=== PATIENT | female | born 1955 | race Caucasian/White ===

== ENCOUNTER 2020-05-20 10:35 | Outpatient (REF) | payer MEDICARE, OTHER, SELFPAY ==
[2020-05-20 13:22] LABS: Alanine Aminotransferase 28 U/L (0-31); Albumin Level 4.5 g/dL (3.5-5.0); Alkaline Phosphatase 63 U/L (39-117); Anion Gap 15 (12-20); Aspartate Amino Transferase 30 U/L (5-31); Bilirubin Total 1.3 mg/dL (0.0-1.0); Blood Urea Nitrogen 11 mg/dL (9-16); Calcium 9.1 mg/dL (8.4-10.2); Carbon Dioxide 23 mmol/L (22-29); Chloride 108 mmol/L (96-108); Cholesterol 220 mg/dL; Estimated Glomerular Filt Rate > 60; Glucose Fasting 120 mg/dL (60-99); HDL Cholesterol 67 mg/dL; LDL Cholesterol Calculated 133 mg/dl; Potassium 4.3 mmol/l (3.3-5.1); Sodium 142 mmol/L (135-145); Total Protein 7.2 g/dL (6.5-8.0); Triglycerides 104 mg/dL
[2020-05-20 13:26] LABS: Estimated Average Glucose 123 mg/dL; Hemoglobin A1c % 5.9 %
== END 2020-05-20 10:36 | disposition home or self-care (01) ==
LOC: HO.MANLR 10:35
PROVIDERS: PCP Internal Medicine; Visit Provider Internal Medicine
DX: E11.9 Type 2 diabetes mellitus without complications (principal)
CPT/HCPCS: 80053; 80061; 83036

== ENCOUNTER 2020-08-09 14:53 | Outpatient (REF) | payer MEDICARE, OTHER, SELFPAY ==
[2020-08-09 18:06] LABS: MANUAL DIFF FLAG NO
[2020-08-09 18:18] LABS: Basophils Percent Auto 0.7 % (0-2); Eosinophils Absolute Auto 0.1 X10*3/uL (0.0-0.4); Eosinophils Percent Auto 1.6 % (0-4); Hematocrit 37.2 % (37-47); Hemoglobin 12.6 g/dl (12.0-16.0); Imm Gran Abs Auto 0.02 X10*3/uL (0.00-0.03); Imm Gran Pct Auto 0.3 % (0.0-0.4); Lymphocytes Absolute Auto 2.7 X10*3/uL (1.2-4.9); Mean Corpuscular HGB Conc 33.9 g/dl (31.0-35.0); Mean Corpuscular Hemoglobin 31.6 pg (27.0-33.0); Mean Corpuscular Volume 93.2 fL (80-98); Mean Platelet Volume 10.1 fL (9.4-12.3); Monocytes Absolute Auto 0.6 X10*3/uL (0.1-1.2); Monocytes Percent Auto 10.4 % (2-11); Neutrophils Absolute Auto 2.6 X10*3/uL (2.0-8.3); Platelet Count 321 X10*3/uL (160-400); Red Blood Count 3.99 X10*6/uL (4.20-5.50); White Blood Count 6.1 X10*3/uL (4.8-10.8)
[2020-08-09 18:23] LABS: Alanine Aminotransferase 20 U/L (0-31); Albumin Level 4.3 g/dL (3.5-5.0); Alkaline Phosphatase 76 U/L (39-117); Amylase 58 U/L (28-100); Anion Gap 13 (12-20); Aspartate Amino Transferase 20 U/L (5-31); Bilirubin Direct 0.3 mg/dL (0.0-0.5); Bilirubin Total 0.5 mg/dL (0.0-1.0); Blood Urea Nitrogen 15 mg/dL (9-16); Calcium 9.2 mg/dL (8.4-10.2); Carbon Dioxide 24 mmol/L (22-29); Chloride 106 mmol/L (96-108); Estimated Glomerular Filt Rate > 60; Glucose Random 98 mg/dL (60-115); Lipase 40 U/L (8-78); Potassium 3.9 mmol/l (3.3-5.1); Sodium 139 mmol/L (135-145); Total Protein 7.1 g/dL (6.5-8.0)
== END 2020-08-09 14:54 | disposition home or self-care (01) ==
LOC: HO.MANLDS 14:53
PROVIDERS: PCP Internal Medicine; Visit Provider Physician Assistant
DX: R19.5 Other fecal abnormalities (principal)
CPT/HCPCS: 36415; 80053; 80076; 82150; 82248; 83690; 85025

== ENCOUNTER 2020-08-10 09:41 | Outpatient (REF) | payer MEDICARE, OTHER, SELFPAY | END 2020-08-10 09:42 | disposition home or self-care (01) | LOC: HO.MANLNP 09:41 | PROVIDERS: PCP Internal Medicine; Visit Provider Physician Assistant | DX: R19.5 Other fecal abnormalities (principal) | CPT/HCPCS: 87015; 87045; 87046; 87077; 87272; 87329 ==

== ENCOUNTER 2020-11-29 13:39 | Outpatient (REF) | payer MEDICARE, OTHER, SELFPAY ==
[2020-11-29 18:11] LABS: Alanine Aminotransferase 25 U/L (0-31); Albumin Level 4.2 g/dL (3.5-5.0); Alkaline Phosphatase 85 U/L (39-117); Anion Gap 14 (12-20); Aspartate Amino Transferase 22 U/L (5-31); Bilirubin Total 0.9 mg/dL (0.0-1.0); Blood Urea Nitrogen 17 mg/dL (9-16); Calcium 9.5 mg/dL (8.4-10.2); Carbon Dioxide 25 mmol/L (22-29); Chloride 107 mmol/L (96-108); Cholesterol 201 mg/dL; Estimated Glomerular Filt Rate > 60; Glucose Fasting 104 mg/dL (60-99); HDL Cholesterol 57 mg/dL; LDL Cholesterol Calculated 126 mg/dl; Potassium 4.4 mmol/L (3.3-5.1); Sodium 142 mmol/L (135-145); Total Protein 6.8 g/dL (6.5-8.0); Triglycerides 90 mg/dL
[2020-11-30 08:07] LABS: Estimated Average Glucose 131 mg/dL; Hemoglobin A1C 150.7441 umol/L; Hemoglobin A1c % 6.2 %
== END 2020-11-29 13:40 | disposition home or self-care (01) ==
LOC: HO.MANLDS 13:39
PROVIDERS: PCP Internal Medicine; Visit Provider Internal Medicine
DX: E11.9 Type 2 diabetes mellitus without complications (principal)
CPT/HCPCS: 36415; 80053; 80061; 83036

== ENCOUNTER 2021-03-03 09:52 | Outpatient (REF) | payer MEDICARE, OTHER, SELFPAY ==
[2021-03-03 11:23] LABS: Estimated Average Glucose 128 mg/dL; Hemoglobin A1C 154.7828 umol/L; Hemoglobin A1c % 6.1 %
== END 2021-03-03 09:53 | disposition home or self-care (01) ==
LOC: HO.MANLDS 09:52
PROVIDERS: PCP Internal Medicine; Visit Provider Physician Assistant
DX: E11.9 Type 2 diabetes mellitus without complications (principal)
CPT/HCPCS: 36415; 83036

== ENCOUNTER 2021-07-05 09:51 | Outpatient (REF) | payer MEDICARE, OTHER, SELFPAY ==
[2021-07-05 11:14] LABS: Estimated Average Glucose 117 mg/dL; Hemoglobin A1c % 5.7 %
[2021-07-05 11:40] LABS: Alanine Aminotransferase 29 U/L (0-31); Albumin Level 4.5 g/dL (3.5-5.0); Alkaline Phosphatase 78 U/L (39-117); Anion Gap 14 (12-20); Aspartate Amino Transferase 35 U/L (5-31); Bilirubin Total 1.2 mg/dL (0.0-1.0); Blood Urea Nitrogen 15 mg/dL (9-16); Calcium 10.1 mg/dL (8.4-10.2); Carbon Dioxide 22 mmol/L (22-29); Chloride 109 mmol/L (96-108); Cholesterol 219 mg/dL; Estimated Glomerular Filt Rate 50; Glucose Fasting 136 mg/dL (60-99); HDL Cholesterol 71 mg/dL; LDL Cholesterol Calculated 124 mg/dl; Potassium 4.5 mmol/L (3.3-5.1); Sodium 140 mmol/L (135-145); Total Protein 7.3 g/dL (6.5-8.0); Triglycerides 124 mg/dL
[2021-07-05 13:03] LABS: Creatinine Urine 257.87 mg/dL; Microalbum/Creatinine Ratio Ur 11.6 ug/mg cr
== END 2021-07-05 09:52 | disposition home or self-care (01) ==
LOC: HO.MANLDS 09:51
PROVIDERS: PCP Physician Assistant; Visit Provider Physician Assistant
DX: E11.9 Type 2 diabetes mellitus without complications (principal)
CPT/HCPCS: 36415; 80053; 80061; 82043; 83036

== ENCOUNTER 2021-11-03 15:14 | Outpatient (REF) | payer MEDICARE, OTHER, SELFPAY | END 2021-11-03 15:15 | disposition home or self-care (01) | LOC: HO.MANLNP 15:14 | PROVIDERS: Visit Provider Physician Assistant | DX: R30.0 Dysuria (principal) | CPT/HCPCS: 87086 ==

== ENCOUNTER 2022-04-20 09:36 | Outpatient (REF) | payer MEDICARE, OTHER, SELFPAY ==
[2022-04-20 11:00] LABS: MANUAL DIFF FLAG NO
[2022-04-20 11:30] LABS: Basophils Percent Auto 1.1 % (0-2); Eosinophils Absolute Auto 0.1 X10*3/uL (0.0-0.4); Eosinophils Percent Auto 3.7 % (0-4); Hematocrit 36.3 % (37.0-47.0); Imm Gran Abs Auto 0.01 X10*3/uL (0.00-0.03); Imm Gran Pct Auto 0.3 % (0.0-0.4); Lymphocytes Absolute Auto 1.8 X10*3/uL (1.2-4.9); Lymphocytes Percent Auto 46.3 % (20-40); Mean Corpuscular HGB Conc 33.1 g/dl (31.0-35.0); Mean Corpuscular Volume 93.8 fL (80.0-98.0); Mean Platelet Volume 10.5 fL (9.4-12.3); Monocytes Absolute Auto 0.6 X10*3/uL (0.1-1.2); Monocytes Percent Auto 15.3 % (2-11); Neutrophils Absolute Auto 1.3 x10*3/uL (2.0-8.3); Neutrophils Percent Auto 33.3 % (45-73); Platelet Count 222 X10*3/uL (160-400); Red Blood Count 3.87 X10*6/uL (4.20-5.50); Red Cell Distribution Width 13.2 % (11.0-16.0); White Blood Count 3.8 X10*3/uL (4.8-10.8)
[2022-04-20 11:37] LABS: Estimated Average Glucose 120 mg/dL; Hemoglobin A1c % 5.8 %
[2022-04-20 11:59] LABS: Alanine Aminotransferase 21 U/L (0-31); Albumin Level 4.2 g/dL (3.5-5.0); Alkaline Phosphatase 72 U/L (39-117); Anion Gap 14 (12-20); Aspartate Amino Transferase 24 U/L (5-31); Bilirubin Total 0.4 mg/dL (0.0-1.0); Blood Urea Nitrogen 12 mg/dL (9-16); Carbon Dioxide 24 mmol/L (22-29); Chloride 109 mmol/L (96-108); Cholesterol 196 mg/dL; Estimated Glomerular Filt Rate > 60; Glucose Random 119 mg/dL (60-115); HDL Cholesterol 63 mg/dL; LDL Cholesterol Calculated 114 mg/dl; Potassium 4.3 mmol/L (3.3-5.1); Sodium 143 mmol/L (135-145); Total Protein 6.7 g/dL (6.5-8.0); Triglycerides 97 mg/dL
[2022-04-20 12:09] LABS: Thyroid Stimulating Hormone 1.81 uIU/mL (0.32-4.0)
== END 2022-04-20 09:37 | disposition home or self-care (01) ==
LOC: HO.MANLDS 09:36
PROVIDERS: Visit Provider Physician Assistant
DX: Z00.00 Encounter for general adult medical examination without abnormal findings (principal)
CPT/HCPCS: 36415; 80053; 80061; 83036; 84443; 85025

== ENCOUNTER 2022-09-24 11:06 | Outpatient (REF) | payer MEDICARE, OTHER, SELFPAY ==
[2022-09-24 14:10] LABS: MANUAL DIFF FLAG NO
[2022-09-24 14:16] LABS: Basophils Percent Auto 0.6 % (0-2); Eosinophils Absolute Auto 0.2 X10*3/uL (0.0-0.4); Eosinophils Percent Auto 3.6 % (0-4); Hematocrit 36.3 % (37.0-47.0); Hemoglobin 12.4 g/dl (12.0-16.0); Imm Gran Abs Auto 0.01 X10*3/uL (0.00-0.03); Imm Gran Pct Auto 0.2 % (0.0-0.4); Lymphocytes Absolute Auto 2.3 X10*3/uL (1.2-4.9); Lymphocytes Percent Auto 45.8 % (20-40); Mean Corpuscular HGB Conc 34.2 g/dl (31.0-35.0); Mean Corpuscular Hemoglobin 31.2 pg (27.0-33.0); Mean Corpuscular Volume 91.2 fL (80.0-98.0); Mean Platelet Volume 10.2 fL (9.4-12.3); Monocytes Absolute Auto 0.5 X10*3/uL (0.1-1.2); Monocytes Percent Auto 10.2 % (2-11); Neutrophils Percent Auto 39.6 % (45-73); Platelet Count 249 X10*3/uL (160-400); Red Blood Count 3.98 X10*6/uL (4.20-5.50); Red Cell Distribution Width 12.5 % (11.0-16.0)
[2022-09-24 14:33] LABS: Estimated Average Glucose 151 mg/dL; Hemoglobin A1c % 6.9 %
[2022-09-24 14:47] LABS: Microalbum/Creatinine Ratio Ur 10.8 ug/mg cr
[2022-09-24 14:54] LABS: Alanine Aminotransferase 22 U/L (0-31); Alkaline Phosphatase 68 U/L (39-117); Anion Gap 15 (12-20); Aspartate Amino Transferase 24 U/L (5-31); Bilirubin Total 1.1 mg/dL (0.0-1.0); Blood Urea Nitrogen 12 mg/dL (9-16); Carbon Dioxide 22 mmol/L (22-29); Chloride 112 mmol/L (96-108); Cholesterol 198 mg/dL; Estimated Glomerular Filt Rate > 60; Glucose Fasting 142 mg/dL (60-99); HDL Cholesterol 52 mg/dL; LDL Cholesterol Calculated 125 mg/dl; Potassium 3.8 mmol/L (3.3-5.1); Sodium 145 mmol/L (135-145); Total Protein 6.4 g/dL (6.5-8.0); Triglycerides 109 mg/dL
== END 2022-09-24 11:07 | disposition home or self-care (01) ==
LOC: HO.MANLDS 11:06
PROVIDERS: Visit Provider Physician Assistant
DX: E11.9 Type 2 diabetes mellitus without complications (principal)
CPT/HCPCS: 36415; 80053; 80061; 82043; 83036; 85025

== ENCOUNTER 2023-02-01 10:37 | Outpatient (REF) | payer MEDICARE, OTHER, SELFPAY ==
[2023-02-01 13:21] LABS: MANUAL DIFF FLAG NO
[2023-02-01 13:39] LABS: Basophils Absolute Auto 0.1 X10*3/uL (0.0-0.2); Eosinophils Absolute Auto 0.2 X10*3/uL (0.0-0.4); Eosinophils Percent Auto 3.5 % (0-4); Hemoglobin 12.9 g/dl (12.0-16.0); Imm Gran Abs Auto 0.01 X10*3/uL (0.00-0.03); Imm Gran Pct Auto 0.2 % (0.0-0.4); Lymphocytes Absolute Auto 2.4 X10*3/uL (1.2-4.9); Lymphocytes Percent Auto 49.1 % (20-40); Mean Corpuscular HGB Conc 33.1 g/dl (31.0-35.0); Mean Corpuscular Hemoglobin 31.3 pg (27.0-33.0); Mean Corpuscular Volume 94.7 fL (80.0-98.0); Mean Platelet Volume 10.6 fL (9.4-12.3); Monocytes Absolute Auto 0.6 X10*3/uL (0.1-1.2); Monocytes Percent Auto 11.9 % (2-11); Neutrophils Absolute Auto 1.7 x10*3/uL (2.0-8.3); Neutrophils Percent Auto 34.3 % (45-73); Platelet Count 246 X10*3/uL (160-400); Red Blood Count 4.12 X10*6/uL (4.20-5.50); Red Cell Distribution Width 12.8 % (11.0-16.0); White Blood Count 4.9 X10*3/uL (4.8-10.8)
[2023-02-01 14:13] LABS: Estimated Average Glucose 120 mg/dL; Hemoglobin A1c % 5.8 %
[2023-02-01 14:42] LABS: Alanine Aminotransferase 23 U/L (0-31); Albumin Level 4.1 g/dL (3.5-5.0); Alkaline Phosphatase 59 U/L (39-117); Anion Gap 12 (12-20); Aspartate Amino Transferase 26 U/L (5-31); Bilirubin Total 0.8 mg/dL (0.0-1.0); Blood Urea Nitrogen 13 mg/dL (9-16); Calcium 9.2 mg/dL (8.4-10.2); Carbon Dioxide 21 mmol/L (22-29); Chloride 112 mmol/L (96-108); Cholesterol 159 mg/dL; Estimated Glomerular Filt Rate > 60; Glucose Random 133 mg/dL (60-115); HDL Cholesterol 50 mg/dL; LDL Cholesterol Calculated 81 mg/dl; Potassium 4.1 mmol/L (3.3-5.1); Sodium 141 mmol/L (135-145); Total Protein 6.9 g/dL (6.5-8.0); Triglycerides 140 mg/dL
[2023-02-01 15:24] LABS: Microalbum/Creatinine Ratio Ur 23.1 ug/mg cr
== END 2023-02-01 10:38 | disposition home or self-care (01) ==
LOC: HO.MANLDS 10:37
PROVIDERS: Visit Provider Physician Assistant
DX: E11.9 Type 2 diabetes mellitus without complications (principal)
CPT/HCPCS: 36415; 80053; 80061; 82043; 83036; 85025

== ENCOUNTER 2023-04-24 08:58 | Outpatient (REF) | payer MEDICARE, OTHER, SELFPAY ==
[2023-04-24 13:07] LABS: MANUAL DIFF FLAG NO
[2023-04-24 13:30] LABS: Basophils Absolute Auto 0.1 X10*3/uL (0.0-0.2); Eosinophils Absolute Auto 0.2 X10*3/uL (0.0-0.4); Eosinophils Percent Auto 3.8 % (0-4); Hematocrit 40.2 % (37.0-47.0); Hemoglobin 13.7 g/dl (12.0-16.0); Imm Gran Abs Auto 0.02 X10*3/uL (0.00-0.03); Imm Gran Pct Auto 0.3 % (0.0-0.4); Lymphocytes Absolute Auto 2.7 X10*3/uL (1.2-4.9); Lymphocytes Percent Auto 44.7 % (20-40); Mean Corpuscular HGB Conc 34.1 g/dl (31.0-35.0); Mean Corpuscular Hemoglobin 31.9 pg (27.0-33.0); Mean Corpuscular Volume 93.7 fL (80.0-98.0); Mean Platelet Volume 10.4 fL (9.4-12.3); Monocytes Absolute Auto 0.6 X10*3/uL (0.1-1.2); Monocytes Percent Auto 9.1 % (2-11); Neutrophils Absolute Auto 2.5 x10*3/uL (2.0-8.3); Neutrophils Percent Auto 41.1 % (45-73); Platelet Count 280 X10*3/uL (160-400); Red Blood Count 4.29 X10*6/uL (4.20-5.50); Red Cell Distribution Width 13.1 % (11.0-16.0)
[2023-04-24 13:35] LABS: Estimated Average Glucose 126 mg/dL
[2023-04-24 14:07] LABS: Alanine Aminotransferase 25 U/L (0-31); Albumin Level 4.4 g/dL (3.5-5.0); Alkaline Phosphatase 75 U/L (39-117); Anion Gap 13 (12-20); Aspartate Amino Transferase 29 U/L (5-31); Bilirubin Total 0.7 mg/dL (0.0-1.0); Blood Urea Nitrogen 15 mg/dL (9-16); Calcium 9.7 mg/dL (8.4-10.2); Carbon Dioxide 25 mmol/L (22-29); Chloride 105 mmol/L (96-108); Cholesterol 198 mg/dL (<200); Estimated Glomerular Filt Rate > 60; Glucose Random 117 mg/dL (60-115); HDL Cholesterol 57 mg/dL (>40); LDL Cholesterol Calculated 115 mg/dL (<100); Potassium 4.2 mmol/L (3.3-5.1); Sodium 139 mmol/L (135-145); Total Protein 7.6 g/dL (6.5-8.0); Triglycerides 134 mg/dL (<150)
[2023-04-24 14:25] LABS: Creatinine Urine 119.36 mg/dL; Microalbum/Creatinine Ratio Ur 11.7 ug/mg cr (<30)
== END 2023-04-24 08:59 | disposition home or self-care (01) ==
LOC: HO.MANLDS 08:58
PROVIDERS: Visit Provider Physician Assistant
DX: E11.9 Type 2 diabetes mellitus without complications (principal)
CPT/HCPCS: 36415; 80053; 80061; 82043; 82570; 83036; 85025

== ENCOUNTER 2023-07-26 09:35 | Outpatient (REF) | payer MEDICARE, OTHER, SELFPAY | END 2023-07-26 09:36 | disposition home or self-care (01) | LOC: HO.MANLDS 09:35 | PROVIDERS: Visit Provider Physician Assistant | DX: E11.9 Type 2 diabetes mellitus without complications (principal) | CPT/HCPCS: 36415; 80053; 80061; 83036 ==

== ENCOUNTER 2023-10-30 09:08 | Outpatient (REF) | payer MEDICARE, OTHER, SELFPAY ==
[2023-10-30 14:13] LABS: Estimated Average Glucose 114 mg/dL; Hemoglobin A1c % 5.6 % (<6.0)
[2023-10-30 14:55] LABS: Creatinine Urine 197.29 mg/dL; Microalbum/Creatinine Ratio Ur 15.2 ug/mg cr (<30)
== END 2023-10-30 09:09 | disposition home or self-care (01) ==
LOC: HO.MANLDS 09:08
PROVIDERS: Visit Provider Physician Assistant
DX: E11.9 Type 2 diabetes mellitus without complications (principal)
CPT/HCPCS: 36415; 82043; 82570; 83036

== ENCOUNTER 2024-02-18 10:13 | Outpatient (REF) | payer MEDICARE, OTHER, SELFPAY ==
[2024-02-18 14:23] LABS: Estimated Average Glucose 117 mg/dL; Hemoglobin A1c % 5.7 % (<6.0)
[2024-02-18 14:40] LABS: Alanine Aminotransferase 27 U/L (0-31); Albumin Level 4.2 g/dL (3.5-5.0); Alkaline Phosphatase 74 U/L (39-117); Anion Gap 15 (12-20); Aspartate Amino Transferase 30 U/L (5-31); Bilirubin Total 0.8 mg/dL (0.0-1.0); Blood Urea Nitrogen 16 mg/dL (9-16); Calcium 9.9 mg/dL (8.4-10.2); Carbon Dioxide 24 mmol/L (22-29); Chloride 107 mmol/L (96-108); Cholesterol 211 mg/dL (<200); Estimated Glomerular Filt Rate 58; Glucose Random 92 mg/dL (60-115); HDL Cholesterol 52 mg/dL (>40); LDL Cholesterol Calculated 125 mg/dL (<100); Potassium 4.3 mmol/L (3.3-5.1); Sodium 142 mmol/L (135-145); Total Protein 7.2 g/dL (6.5-8.0); Triglycerides 172 mg/dL (<150)
== END 2024-02-18 10:14 | disposition home or self-care (01) ==
LOC: HO.MANLDS 10:13
PROVIDERS: Visit Provider Physician Assistant
DX: E11.9 Type 2 diabetes mellitus without complications (principal)
CPT/HCPCS: 36415; 80053; 80061; 83036

== ENCOUNTER 2024-05-15 11:24 | Outpatient (REF) | payer MEDICARE, OTHER, SELFPAY ==
[2024-05-15 13:42] LABS: Alanine Aminotransferase 22 U/L (0-31); Albumin Level 3.9 g/dL (3.5-5.0); Alkaline Phosphatase 70 U/L (39-117); Anion Gap 10 (12-20); Aspartate Amino Transferase 27 U/L (5-31); Bilirubin Total 0.8 mg/dL (0.0-1.0); Blood Urea Nitrogen 13 mg/dL (9-16); Calcium 9.4 mg/dL (8.4-10.2); Carbon Dioxide 25 mmol/L (22-29); Chloride 110 mmol/L (96-108); Cholesterol 190 mg/dL (<200); Estimated Average Glucose 108 mg/dL; Estimated Glomerular Filt Rate > 60; Glucose Random 116 mg/dL (60-115); HDL Cholesterol 55 mg/dL (>40); Hemoglobin A1C 115.9219 umol/L; Hemoglobin A1c % 5.4 % (<6.0); LDL Cholesterol Calculated 115 mg/dL (<100); Potassium 3.8 mmol/L (3.3-5.1); Sodium 141 mmol/L (135-145); Total Hemoglobin (HGBA1C) 3223.0453 umol/L; Total Protein 6.8 g/dL (6.5-8.0); Triglycerides 104 mg/dL (<150)
[2024-05-15 14:06] LABS: Creatinine Urine 101.35 mg/dL; Microalbum/Creatinine Ratio Ur 5.9 ug/mg cr (<30)
== END 2024-05-15 11:25 | disposition home or self-care (01) ==
LOC: HO.MANLDS 11:24
PROVIDERS: Visit Provider Physician Assistant
DX: E11.9 Type 2 diabetes mellitus without complications (principal)
CPT/HCPCS: 36415; 80053; 80061; 82043; 82570; 83036

== ENCOUNTER 2024-08-26 10:37 | Outpatient (REF) | payer MEDICARE, OTHER, SELFPAY ==
--- OUTSIDE RECORDS SUMMARY | 2024-08-26 11:40 | XMS_ITS | Data Portability ---
Author Organization [facility] Address [address] [place] [address] Assessment Encounter Date Assessment Date Assessment LastModified by Organization Details LastModified Time 07/26/2023 07/26/2023 Patient agreed and verbally consents to this audio and video Telehealth appt via a secure platform [email or web address] Not available 07/26/2023 11:35:10 07/31/2023 07/31/2023 Patient agreed and verbally consents to this audio and video Telehealth appt via a secure platform [email or web address] Not available 07/31/2023 11:05:05 Plan of Treatment Reminders Order Date Submit Date Provider Last Modified By Organization Details Last Modified Time Details Appointments FOLLOW UP 15 2024 09:30A LEIGHTON CHOI Not available Not available Not available Lab CMP, serum or plasma 2023 [facility], [address] [place] [address], [id number], 02/19/2024 11:26:48 lipid panel, blood 2023 [facility], [address] [place] [address], [id number], 02/19/2024 11:26:49 CBC w/ auto diff 2023 024 [facility], [address] [place] [address], [id number], 02/11/2024 11:39:29 hemoglobi n A1c, QN, blood 2023 024 [facility], [address] [place] [address], [id number], 02/19/2024 11:26:48 hemoglobi n A1c, QN, blood 2023 024 [facility], [address] [place] [address], [id number], 02/19/2024 11:26:48 CMP, serum or plasma 2023 024 [facility], [address] [place] [address], [id number], 05/18/2024 11:38:06 lipid panel, blood 2023 025 [facility], [address] [place] [address], [id number], 02/19/2024 11:26:49 CMP, serum or plasma 2023 025 [facility], [address] [place] [address], [id number], 05/18/2024 11:38:06 CMP, serum or plasma 2023 024 [facility], [address] [place] [address], [id number], 05/29/2024 11:48:07 lipid panel, blood 2023 024 [facility], [address] [place] [address], [id number], 05/29/2024 11:48:07 CBC w/ auto diff 2023 024 [facility], [address] [place] [address], [id number], 05/29/2024 11:48:07 hemoglobi n A1c, QN, blood 11/2023 [facility], [address] [place] [address], [place], [id number], 05/29/2024 11:48:07 Referral None recorded. Procedures None recorded. Surgeries None recorded. Imaging bone density 2023 024 [email or web address] Not available 02/25/2024 08:19:59 MAMMO, screening , digital, bilateral 2023 024 [email or web address] Not available 06/12/2024 08:32:02 Medication Orders Zithromax Z-James 250 mg tablet 2023 024 [email or web address] #[id number], [address], [place], [id number], 07/31/2023 11:02:55 prednison e 10 mg tablet 2023 024 [email or web address] [email or web address] [facility] #[id number], [address], [place], [id number], 11/13/2023 14:20:46 Ozempic 1 mg/dose (4 mg/3 mL) subcutane ous pen injector 2023 024 [email or web address] [facility] #[id number], [address], [place], [id number], 11/13/2023 14:30:49 Ozempic 2 mg/dose (8 mg/3 mL) subcutane ous pen injector 2023 024 [email or web address] [facility] #60841, [address], [place], [id number], 11/13/2023 14:30:56 propranol ol ER 60 mg capsule,2 4 hr,extend ed release 2023 024 [email or web address] [facility] #21786, [address], [place], [id number], 11/13/2023 14:38:01 fluticaso ne propionat e 110 mcg/actua tion HFA aerosol inhaler 2023 024 [facility] #[id number], [address], [place], [id number], 05/29/2024 11:21:31 Patient TargetsNo targets recorded. Patient InstructionsNo instructions recorded. Reason for Referral None Reported. Results Created Date Observation Date Name Description Value Unit Range Abnormal Flag Note LastModifiedBy Organization Detail LastModifiedTime Result Notes None recorded. Problems Name Problem SNOMED Code Status Onset Date Resolution Date Notes Provider Name and Address Organization Details Recorded Time Impaired fasting glycemia 840902232 Active 2018 Not Available [facility] 14:33:26 Dysuria 35980745 Active 2021 LEIGHTON ROCK [address] [place], [address], [facility] 2 11:22:34 Fall Active 2021 LEIGHTON ROCK [address] [place], [address], [facility] 2 14:43:53 Rib pain 065564356 Active 2021 LEIGHTON ROCK [address] [place], [address], [facility] 2 14:44:21 Pain of right shoulder joint 6998761612 7091758 Active 2021 LEIGHTON ROCK [address] [place], [address], [facility] 2 14:44:30 Contusio n of right lower leg 2672414866 5000984 Active 2021 LEIGHTON ROCK [address] [place], [address], [facility] 2 14:44:41 Temporom andibula r joint-pa in-dysfu nction syndrome 989437201 Active 2021 LEIGHTON ROCK [address] [place], [address], [facility] 2 14:47:55 Dizzines s 713085391 Active 2021 LEIGHTON ROCK [address] [place], [address], [facility] 2 14:50:07 COVID-19 992318085 [facility] 2 10:45:23 Pain of right lower leg 4649131845 86061 Active 2021 LEIGHTON ROCK [address] [place], [address], [facility] 2 11:05:06 Mass of lower limb 753208801 Active 2021 LEIGHTON ROCK [address] [place], [address], [facility] 2 16:47:25 Guerra laminar sclerosi s 503587620 Active 2021 LEIGHTNO ROCK [address] [place], [address], [facility] 2 10:21:50 Pleural effusion 66990325 Active 2022 LEIGHTON ROCK [address] [place], [address], [facility] 3 16:16:16 Overacti ve urinary bladder 718203368 Active 2022 LEIGHTON ROCK [address] [place], [address], [facility] 3 10:39:17 Type 2 diabetes mellitus 90831509 Active 2022 LEIGHTON ROCK [address] [place], [address], [facility] 3 10:42:28 Edema of lower extremit y 734636585 Active 2022 LEIGHTON ROCK [address] [place], [address], [facility] 3 10:44:49 Urinary incontin ence 975983463 Active 2023 LEIGHTON ROCK [address] [place], [address], [facility] 4 11:05:14 Osteopen ia 404248062 Active 2023 LEIGHTON ROCK [address] [place], [address], [facility] 4 11:33:42 Essentia l hyperten geeta 29782866 Active 2017 Not Available [facility] 2 14:33:25 Hypergly cemia 38533162 Completed 201710/22/2018 Windy Qiu NP, [address] [place], [address], [facility] 9 05:36:52 Obesity 585319027 Active 2017 Not Available [facility] 2 14:33:25 Gastroes ophageal reflux disease 267840248 Active 2017 Not Available [facility] 2 14:33:26 Internal hemorrho ids 61876977 Active 2017 Not Available [facility] 2 14:33:26 Polyp of colon 41485270 Active 2017 Not Available [facility] 2 14:33:26 Reactive airways dysfunct ion syndrome 113432735 Completed 201701/28/2018 [facility] 8 14:36:40 Asthma 222751653 Active 2017 reactive airway syndrome Not Available [facility] 2 14:33:26 Problem Notes None recorded. Procedures Surgical History Date Name Laterality Status Provider Name and Address Organization Details Recorded Time 021 cholecystectomy completed LEIGHTON ROCK [address] [place], [address], [facility] 09/19/2020 09:36:58 020 Colonoscopy completed [facility] 05/25/2020 13:33:22 019 Joint Replacement completed [facility] 05/25/2020 13:33:22 019 Most Recent Mammogram completed [facility] 03/09/2019 08:31:30 019 total replacement of left hip joint completed NAKITA Raya [address] [place], [address], [facility] 01/12/2019 10:46:18 019 Joint Replacement completed [facility] 05/25/2020 13:33:22 016 Date of Last Pap Smear completed [facility] 03/09/2019 08:31:00 013 Colonoscopy completed [facility] 03/09/2019 08:32:53 987 Caesarean Section completed [facility] 05/25/2020 13:33:22 984 Caesarean Section completed [facility] 05/25/2020 13:33:22 981 Caesarean Section completed [facility] 05/25/2020 13:33:22 979 Laparoscopy completed [facility] 10/21/2018 16:02:01 Caesarean Section completed Windy Qiu NP, [address] [place], [address], [facility] 10/22/2018 10:45:44 Imaging Results None recorded. Procedure Notes None recorded. Medical Equipment None Reported. Allergies Allergen ID Allergen Name Allergen Category Reaction Reaction Severity Criticality Documentation Date Start Date Code Code System Note Provider Name and Address Organization Details Recorded Time 1836 Compazine medicatio n seizure Not available Not available 01/29/201887831 6 RxNorm Yue lentz [facility] 8 14:00:45 2953 iodine medicatio n Not available Not available Not available 10/21/2018 5933 RxNorm Yue lentz [facility] 9 16:01:23 7051 Mounjaro medicatio n swelling severe Not available 02/05/2023 62162 34 RxNorm LEIGHTON ROCK [address] [place], [address] [facility] 3 11:20:24 Medications Name Sig Start Date Stop Date Status Note LastModified by Organization Details LastModified Time Prescript ion - Prior Authoriza tion Request 06/24 completed Not Available Not Available Not Available amoxicill in 500 mg capsule TAKE 1 CAPSULE BY MOUTH EVERY 8 HOURS 10/31 completed Not Available Not Available Not Available metformin 500 mg tablet 01/29 completed Not Available Not Available Not Available prednison e 10 mg tablet take 5 tabs x 2 daystake 4 tabs x 2 daystake 3 tabs x 2 daystake 2 tabs x 2 daystake 1 tab x 2 days 11/12 completed Not Available Not Available Not Available albuterol sulfate 2.5 mg/3 mL (0.083 %) solution for nebulizat ion USE 3 ML VIA NEBULIZE R THREE TIMES DAILY active Not Available Not Available No t Available azithromy nkechi 250 mg tablet TAKE 2 TABLETS (500 MG) BY ORAL ROUTE ONCE DAILY FOR 1 DAY THEN 1 TABLET (250 MG) BY ORAL ROUTE ONCE DAILY FOR 4 DAYS 07/31 completed Not Available Not Available Not Available fluconazo le 150 mg tablet Take 1 tablet every 72 hours by oral route for 2 days. 06/24 completed Not Available Not Available Not Available naltrexon e 50 mg tablet start 1/2 tab qd x 7 days, then increase to 1 tab qd 12/22 completed Not Available Not Available Not Available lisinopri l 20 mg tablet TAKE 1 TABLET BY MOUTH EVERY DAY 10/03 completed Not Available Not Available Not Available Medrol (James) 4 mg tablets in a dose pack Take 1 dose pk by oral route as directed . 10/05 completed Not Available Not Available Not Available prednison e 20 mg tablet TAKE 1 TABLET BY MOUTH EVERY DAY FOR 7 DAYS 11/09 completed Not Available Not Available Not Available propranol ol ER 60 mg capsule,2 4 hr,extend ed release TAKE 1 CAPSULE BY MOUTH EVERY DAY active Not Available Not Available No t Available phentermi ne 15 mg capsule TAKE 1 CAPSULE BY MOUTH EVERY DAY 11/09 completed Not Available Not Available Not Available Advair Diskus 100 mcg-50 mcg/dose powder for inhalatio n 10/22 completed Not Available Not Available Not Available phentermi ne 37.5 mg tablet TAKE 1 TABLET BY MOUTH EVERY DAY 04/23 completed Not Available Not Available Not Available ciproflox acin 250 mg tablet TAKE 1 TABLET BY MOUTH TWICE DAILY FOR 5 DAYS 02/05 completed Not Available Not Available Not Available sulfameth oxazole 800 mg-trimet hoprim 160 mg tablet TAKE 1 TABLET BY MOUTH EVERY 12 HOURS FOR 7 DAYS 04/23 completed Not Available Not Available Not Available omeprazol e 40 mg capsule,d elayed release Take 1 capsule every day by oral route for 90 days. 02/14 completed Not Available Not Available Not Available doxycycli ne monohydra te 100 mg capsule TAKE 1 CAPSULE BY MOUTH TWICE DAILY 08/23 completed Not Available Not Available Not Available lisinopri l 10 mg tablet TAKE 1 TABLET BY MOUTH EVERY DAY 10/03 completed Not Available Not Available Not Available omeprazol e 20 mg capsule,d elayed release TAKE 1 CAPSULE BY MOUTH EVERY DAY 2023 active Not Available Not Available Not Avai lable lisinopri l 20 mg-hydroc hlorothia zide 25 mg tablet TAKE 1 TABLET BY MOUTH EVERY DAY 05/15 completed Not Available Not Available Not Available diclofena c sodium 75 mg tablet,de layed release Take 1 tablet twice a day by oral route as needed for 30 days. 01/12 completed Not Available Not Available Not Available bisacodyl 5 mg tablet,de layed release 02/14 completed Not Available Not Available Not Available lisinopri l 5 mg tablet 06/21 completed Not Available Not Available Not Available furosemid e 20 mg tablet TAKE 1 TABLET BY MOUTH EVERY DAY active Not Available Not Available No t Available metoprolo l succinate ER 25 mg tablet,ex tended release 24 hr TAKE 1 TABLET BY MOUTH EVERY DAY 03/07 completed Not Available Not Available Not Available clobetaso l 0.05 % topical ointment 01/29 completed Not Available Not Available Not Available levofloxa nkechi 500 mg tablet TAKE 1 TABLET BY MOUTH EVERY 24 HOURS FOR 7 DAYS 11/09 completed Not Available Not Available Not Available estradiol 0.01% (0.1 mg/gram) vaginal cream USE 1 GRAM VAGINALL Y DAILY AT BEDTIME TAKE EVERY NIGHT FOR 2 WEEKS THEN 2 TIMES A WEEK 02/05 completed Not Available Not Available Not Available albuterol sulfate HFA 90 mcg/actua tion aerosol inhaler INHALE 2 PUFFS BY MOUTH EVERY 4 HOURS NEEDED active Not Available Not Available No t Available lisinopri l 40 mg tablet TAKE 1 TABLET BY MOUTH EVERY DAY 2024 active Not Available Not Available Not Avai lable fluticaso ne propionat e 110 mcg/actua tion HFA aerosol inhaler 2023 active Not Available Not Available Not Avai lable amoxicill in 875 mg-potass ium clavulana te 125 mg tablet Take 1 tablet every 12 hours by oral route for 7 days. 05/26 completed Not Available Not Available Not Available Tylenol Extra Strength 500 mg tablet Take 3 tablets every day by oral route as needed. 12/22 completed sometime s twice a day Not Available Not Available Not Available oxycodone 5 mg tablet 09/19 completed Not Available Not Available Not Available Pneumovax -23 25 mcg/0.5 mL injection syringe 06/24 completed Not Available Not Available Not Available bupropion HCl XL 300 mg 24 hr tablet, extended release TAKE 1 TABLET BY MOUTH ONCE DAILY 12/22 completed Not Available Not Available Not Available bupropion HCl XL 150 mg 24 hr tablet, extended release Take 1 tablet every day by oral route for 7 days. 10/22 completed Not Available Not Available Not Available nitrofura ntoin monohydra te/macroc rystals 100 mg capsule TAKE 1 CAPSULE BY MOUTH TWICE DAILY FOR 7 DAYS 11/12 completed Not Available Not Available Not Available Boostrix Tdap 2.5 Lf unit-8 mcg-5 Lf/0.5 mL intramusc ular syringe 06/24 completed Not Available Not Available Not Available Aleve 1000mg once a day prn 12/22 completed Not Available Not Available Not Available Keflex 1 tablet twice a day for 7 days 06/17 completed Not Available Not Available Not Available Multivita mins active Not Available Not Available Not Available multivita min 08/03 completed Not Available Not Available Not Available Tylenol PM prn 08/03 completed Not Available Not Available Not Available GaviLyte- G 236 gram-22.7 4 gram-6.74 gram-5.86 gram oral solution 02/14 completed Not Available Not Available Not Available Myrbetriq 25 mg tablet,ex tended release TAKE 1 TABLET BY MOUTH DAILY 04/30 completed Not Available Not Available Not Available Myrbetriq 50 mg tablet,ex tended release TAKE 1 TABLET BY MOUTH DAILY AT BEDTIME active Not Available Not Available No t Available Virtussin AC 10 mg-100 mg/5 mL oral liquid TAKE 10 ML BY MOUTH EVERY 4 HOURS FOR 7 DAYS 03/07 completed Not Available Not Available Not Available Biofreeze (menthol) Apply up to 4 times a day 09/09 completed Not Available Not Available Not Available Contrave 8 mg-90 mg tablet,ex tended release 07/01 completed Not Available Not Available Not Available Arnuity Ellipta 100 mcg/actua tion powder for inhalatio n INHALE 1 PUFF BY MOUTH EVERY DAY 2023 active Not Available Not Available Not Avai lable Flonase Allergy Relief 50 mcg/actua tion nasal spray,kadeem pension [place] 1 spray every day by intranas al route. 06/24 completed Not Available Not Available Not Available Shingrix (PF) 50 mcg/0.5 mL intramusc ular suspensio n, kit ADM 0.5ML IM UTD 12/05 completed Not Available Not Available Not Available Ozempic 0.25 mg or 0.5 mg (2 mg/1.5 mL) subcutane ous pen injector INJECT 0.25 MG SC EVERY WEEK 04/30 completed Not Available Not Available Not Available Tylenol 325 mg capsule Take 3 capsules twice a day by oral route as needed. 02/09 completed Not Available Not Available Not Available Flucelvax Quad (PF) 60 mcg (15 mcg x 4)/0.5 mL IM syringe 06/24 completed Not Available Not Available Not Available COVID-19 test specimen collectio n TEST DIRECTED TODAY 10/03 completed Not Available Not Available Not Available Fluarix Quad (PF) 60 mcg (15 mcg x 4)/0.5 mL IM syringe ADM 0.5ML IM UTD 12/05 completed Not Available Not Available Not Available Gemtesa 75 mg tablet TAKE 1 TABLET BY MOUTH DAILY active Not Available Not Available No t Available Ozempic 1 mg/dose (4 mg/3 mL) subcutane ous pen injector INJECT 1 MG UNDER THE SKIN EVERY WEEK 11/12 completed Not Available Not Available Not Available Paxlovid 300 mg (150 mg x 2)-100 mg tablets in a dose pack TK 2 NIRMATRE LVIR TS AND 1 RITONAVI R T TOGETHER PO BID FOR 5 DAYS BID FOR 5 DAYS 11/09 completed Not Available Not Available Not Available Ozempic 2 mg/dose (8 mg/3 mL) subcutane ous pen injector INJECT 2 MG UNDER THE SKIN EVERY WEEK 2023 active Not Available Not Available Not Avai lable Mounjaro 2.5 mg/0.5 mL subcutane ous pen injector ADMINIST ER 2.5 MG UNDER THE SKIN EVERY WEEK 02/05 completed Not Available Not Available Not Available Ozempic 0.25 mg or 0.5 mg (2 mg/3 mL) subcutane ous pen injector INJECT 0.5 MG UNDER THE SKIN ONE DAY A WEEK 11/12 completed Not Available Not Available Not Available Vitals Date Recorded Body height Body mass index (BMI) Body weight Heart rate Respiratory rate Oxygen saturation Oxygen saturation in Arterial blood by Pulse oximetry Systolic blood pressure Diastolic blood pressure Provider Name and Address Organization Details Last Updated DateTime 4 163.2 cm 44.5 kg/m2 944572. 69 g 68 /min 18 /min 100 % 100 % 132 mm[Hg] 82 mm[Hg] [facility] 4 14:19:57 Date Recorded Body height Body mass index (BMI) Body weight Heart rate Oxygen saturation Oxygen saturation in Arterial blood by Pulse oximetry Systolic blood pressure Diastolic blood pressure Provider Name and Address Organization Details Last Updated DateTime 4 163.83 cm 41.1 kg/m2 594122. 95 g 76 /min 98 % 98 % 128 mm[Hg] 70 mm[Hg] Linden Augustin [facility] 4 11:17:37 Date Recorded Body height Body mass index (BMI) Body weight Heart rate Oxygen saturation Oxygen saturation in Arterial blood by Pulse oximetry Systolic blood pressure Diastolic blood pressure Provider Name and Address Organization Details Last Updated DateTime 4 163.83 cm 41.9 kg/m2 542776. 19 g 77 /min 98 % 98 % 132 mm[Hg] 86 mm[Hg] Bri Melgar [facility] 4 11:11:21 Social History Question Answer Notes LastModified by Organizat ion Details LastModified Time Tobacco Smoking Status Never Smoker Not Available [facility] 05/24/2020 03:36:23 What Was The Date Of Your Most Recent Tobacco Screening? 05/29/2024 [email or web address] Information not available 05/29/2024 Do You Or Have You Ever Used Any Other Forms Of Tobacco Or Nicotine? No [email or web address] Information not available 11/09/2022 Sex: Unknown Functional Status None recorded. Mental Status None recorded. Family History Relationship Description Onset Age of this Age Resolved Age Notes LastModified by Organization Details LastModified Time Mother Osteoarthrit is [email or web address] Not available 2023 14:17:15 Father Diabetes mellitus 62 68 CAD [email or web address] Not available 2018 10:44:47 Brother Impaired fasting glycemia [email or web address] Not available 2023 14:17:15 Medical History Condition Response Coronary Artery Disease N Gout N Other N Kidney Stones N Blood Diseases N Blood Transfusion N Breast Cancer N Lung Disease N Depression N COPD N Defects or Inherited Disease N Difficulty Swallowing N Anesthesia Complications N Anxiety Disorder N Muscle, Joint, or Bone Problems N Obesity N Vision or Eye Problems N Arthritis N Infertility N Polyps N Mental Disorder N Cancer N Stroke N Varicosities N Endometriosis N Bladder or Kidney Problems N High Cholesterol N Liver Disease N Fibromyalgia N Headaches N Kidney Disease N Allergies/Hayfever N Heart Problems N Hospitalizations N Thyroid Problems N GI Problems N Eating Disorder N Skin Problems N Anemia N MRSA exposure N Constipation N Mental Illness N Diabetes Y Ovarian Cancer N Seizures/Epilepsy N Tuberculosis N Congestive Heart Failure (CHF) N Eczema N Abuse/Domestic Violence N Diverticulitis N Asthma Y Reflux/GERD Y Hepatitis N Heart Disease N Pulmonary Embolism N Hypertension N Chicken Pox N Autism Spectrum Disorder (ASD) N Osteoporosis N Gynecological History Statement/Question Response Date of Last Pap Smear 11/18/2015 Most Recent Mammogram 02/18/2019 Obstetrics History GPAL:G 0 P 0 0 0 0 Immunizations Vaccine Type Date Status Note Provider Nam e and Address Organization Details Recorded Time Influenza, split virus, quadrivalent, preservative 1 completed Not Available [facility] 09/09/2023 01:06:25 COVID-19, mRNA, LNP-S, PF, 100 mcg/0.5mL dose or 50 mcg/0.25mL dose 1 completed Not Available [facility] 09/09/2023 01:06:25 COVID-19, mRNA, LNP-S, PF, 30 mcg/0.3 mL dose 2 completed Not Available [facility] 09/09/2023 01:06:25 COVID-19, mRNA, LNP-S, PF, 100 mcg/0.5mL dose or 50 mcg/0.25mL dose 2 completed Not Available [facility] 09/09/2023 01:06:25 Influenza, split virus, quadrivalent, preservative 2 completed Not Available [facility] 09/09/2023 01:06:25 SARS-COV-2 (COVID-19) vaccine, UNSPECIFIED 3 completed Not Available [facility] 09/09/2023 01:06:25 pneumococcal, unspecified formulation 3 completed Not Available [facility] 09/09/2023 01:06:25 Tdap 9 completed Not Available [facility] 09/09/2023 01:06:25 pneumococcal polysaccharide PPV23 9 completed Not Available [facility] 09/09/2023 01:06:25 Influenza, split virus, quadrivalent, preservative 8 completed Not Available [facility] 08/08/2019 02:46:31 Influenza, split virus, quadrivalent, PF 8 completed Not Available [facility] 08/08/2019 02:46:31 Influenza, split virus, quadrivalent, preservative 9 completed Not Available [facility] 09/09/2023 01:06:25 zoster, unspecified formulation 0 completed Not Available [facility] 09/09/2023 01:06:25 Influenza, split virus, quadrivalent, preservative 0 completed Not Available [facility] 09/09/2023 01:06:25 zoster, unspecified formulation 0 completed Not Available [facility] 09/09/2023 01:06:25 COVID-19, mRNA, LNP-S, PF, 100 mcg/0.5mL dose or 50 mcg/0.25mL dose 1 completed Not Available [facility] 09/09/2023 01:06:25 COVID-19, mRNA, LNP-S, PF, 100 mcg/0.5mL dose or 50 mcg/0.25mL dose 1 completed Not Available [facility] 09/09/2023 01:06:25 Past Encounters Encounter ID Performer Location Encounter Start Date Encounter Closed Date Diagnosis/Indication Diagnosis SNOMED-CT Code Diagnosis ICD10 Code Diagnosis Note [id number] October NAKITA Mathur [facility] [address], [place] [address] 01/29/2018 13:53:59 01/29/2018 15:37:25 Type 2 diabetes mellitus 37690075 E11.9 very well controlled despite weight gain pt already working on weight loss again Asthma 806271251 J45.90 9 typically on advair proair just if needed usually without sx Gastroesop hageal reflux disease 888636864 K21.9 quiet without medication Obesity 285761811 E66.9 had lost about 40 lb then gained 30 back, working on losing again. Essential hypertension 09982478 I10 has been off medication s for about a year has been stable Active or passive immunization 762818254 Z23 [id number] Rojas Rogel DO [facility] [address], [place] [address] 04/14/2018 08:54:34 04/14/2018 16:28:05 Administration of influenza vaccine 54871231 Z23 [id number] [facility] [address] [facility] [address],[place] [address] 06/17/2018 13:39:01 06/17/2018 14:45:48 Asthma 469633562 J45.909 has been quiet Obesity 719031525 E66.9 had lost about 40 lb then gained 30 back, working on losing again. recheck 1 week Essential hypertension 47608802 I10 has been off medication s for about a year has been stable, but up today Pain of le ft hip joint 8398055052 93485 M25.552 end stage OA, needs to lose at least 10-20 pounds for surgery that she is scheduled for 07/21 safe doses of tylenol + aleve [place]e d [id number] [facility] [address],[place] [address] 06/24/2018 10:39:26 06/24/2018 11:46:33 Asthma 398010270 J45.909 has been quiet Obesity 569216676 E66.9 had lost about 40 lb then gained 30 back, working on losing again. recheck 1 week Essential hypertension 72134524 I10 has been off medication s for about a year has been stable, but up today Pain of le ft hip joint 2348697955 88147 M25.552 end stage OA, needs to lose at least 10-20 pounds for surgery that she is scheduled for 07/21 safe doses of tylenol + aleve have been recommende d Benign ess ential hypertension 3812549 I10 [id number] [facility] [address] [facility] [address],[place] Naqvi [facility] [place] [address] 07/01/2018 10:52:50 07/01/2018 11:46:17 Asthma 870815881 J45.909 has been quiet Obesity 480662881 E66.9 had lost about 40 lb then gained 30 back, working on losing again. has lost 6# on wb + naltrexone as contrave was not covered will stop naltrexone 1 week prior to surgery 07/14/18 f/u here 07/11/18 for preop Essential hypertension 73363830 I10 has been off medication s for about a year BP still mildly elevated even with lisinopril 10 mg. though has only been on it x 1 week. continue 10 mg recheck next week Pain of le ft hip joint 9391133544 13739 M25.552 has actually been a bit better this week [id number] October [facility] [address], [place] [address] 07/11/2018 10:12:11 07/11/2018 14:11:27 Asthma 704192408 J45.909 has been quiet Obesity 038141767 E66.9 has had 12# weight loss so far will continue wb/naltrex one Essential hypertension 46541124 I10 well controlled Pain of le ft hip joint 0390481709 64137 M25.552 has actually been a bit better this week [id number] October [facility] Medicine [address], [place] [address] 09/09/2018 15:54:47 09/09/2018 16:25:18 Asthma 066516193 J45.909 has been quiet Obesity 604655652 E66.9 would like to restart the meds again Hip pain 30012554 M25.55 9 actually pretty quiet Essential hypertension 23661279 I10 has stopped lisinopril , will restart [id number] October [facility] Medicine [address], [place] [address] 09/19/2018 09:54:32 09/19/2018 11:03:00 Asthma 127312926 J45.909 has been quiet Gastroesop hageal reflux disease 614997289 K21.9 quiet without medication Obesity 938175633 E66.9 would like to restart the meds again Acute exac erbation of asthma 464511385 J45.901 Acute fron tonia sinusitis 97721137 J01.10 Candidiasis of vagina 72 505875 B37.3 [id number] Windy Qiu, JCARLOS, S [facility] [address],[place] [address] 10/22/2018 10:33:21 10/22/2018 11:31:00 Gastroesophageal reflux disease 688751277 K21.9 controlled w/diet Obesity 283048709 E66.9 on naltrexone , will D/C 1 week prior to surgery Type 2 aaron betes mellitus 69807390 E11.9 A1C 5.6 03/2018, await todays result Essential hypertension 12095611 I10 stable Dyspnea 740339801 R06.02 Pre-surger y evaluation 611371539 Z01.818 cardiology appt 1st re: sob await labs done prior to appt today [facility] [address], [place] [address] 12/22/2018 09:40:14 12/22/2018 10:57:25 Pre-surgery evaluation 049704511 Z01.818 cleared for surgery Pain of le ft hip joint 3972565205 60819 M25.552 better with diclofenac will have to d/c 3 days prior to Asthma 535408319 J45.90 9 has been quiet Obesity 260106592 E66.9 at goal of BMI <40 prior to procedure Essential hypertension 70243005 I10 well controlled with lisinopril [id number] [facility] [address], [place] [address] 01/12/2019 10:16:04 01/12/2019 11:46:20 Urinary tract infectious disease 07180264 N39.0 Asthma 055938733 J45.90 9 has been quiet Arthritis of hip 1689315 6 M13.859 [id number] [facility] [address],[place] [address] 03/09/2019 14:54:33 03/09/2019 16:20:58 Adult health examination 964238784 Z00.00 will schedule colonoscop 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 completed last done 2 years ago, never had abnl pap Active or passive immunization 075937255 Z23 consider pneumovax Asthma 069272897 J45.90 9 has been quiet Gastroesop hageal reflux disease 941714822 K21.9 quiet without medication Type 2 aaron betes mellitus 04944140 E11.9 had been really well controlled more likely pre diabetic but we will get labs Essential hypertension 83981078 I10 stable off lisinopril [id number] [facility] [address],[place] [address] 05/12/2019 16:07:33 05/12/2019 16:52:20 Asthma 595244765 J45.909 exacerbati on today Gastroesop hageal reflux disease 585791497 K21.9 quiet without medication Acute exac erbation of asthma 935603031 J45.901 Acute fron tonia sinusitis 02532619 J01.10 Candidiasis of vagina 72 185637 B37.3 [id number] [facility] [address],[place] [address] 05/26/2019 09:56:46 05/26/2019 10:25:07 Asthma 244116026 J45.909 exacerbati on today Gastroesop hageal reflux disease 857706013 K21.9 quiet without medication Acute exac erbation of asthma 983317477 J45.901 Acute fron tonia sinusitis 33052473 J01.10 [id number] [facility] [address],[place] [address] 06/24/2019 09:26:23 06/24/2019 10:20:33 Pre-surgery evaluation 965072670 Z01.818 cbc, cmp reviewed as normal a1c 5.5 very good blood sugar control ekg in october was normal had repeat ekg last week at [facility] which showed normal sinus rhythm relatively low risk for surgery, cleared for procedure Pain of le ft hip joint 2585922245 02025 M25.552 Asthma 517627911 J45.90 9 recently ill, but sx have nearly resolved Obesity 763381013 E66.9 at goal of BMI <40 prior to procedure Essential hypertension 28602183 I10 controlled without meds [id number] [facility] [address],[place] [address] 08/03/2019 14:39:23 08/03/2019 15:09:56 Acute laryngitis 3560938 J04.0 Type 2 aaron betes mellitus 12527600 E11.9 had been really well controlled more likely pre diabetic but we will watch Gastroesop hageal reflux disease 300799639 K21.9 Essential hypertension 74573075 I10 controlled without meds Coffee sarah und vomiting 00387732 K92.0 [id number] October NAKITA Mathur [facility] [address] [facility] [address],[place] [address] 10/14/2019 14:06:40 10/19/2019 10:39:31 Gastroesophageal reflux disease 505844738 K21.9 Impaired f asting glycemia 875678036 R73.01 continue to work on diet and exercise Essential hypertension 98194873 I10 mildly elevated per home reading, continue to work on diet and exercise Hyperlipidemia 07487813 E78.5 borderline with high HDL Asthma 853828013 J45.90 9 currently stable, will call if she develops her typical asthma exacerbati on, advised we will do telemed in this case if needed [id number] [place] [facility] [address] [facility] [address],[place] [address] 02/15/2020 11:39:23 02/15/2020 12:14:39 Raised seborrheic keratosis 6107708294 37324 L82.1 Laryngopha ryngeal reflux 939939099 K21.9 Asthma 423708272 J45.90 9 Essential hypertension 13908394 I10 [id number] [place] [facility] [address] [facility] [address],[place] [address] 05/25/2020 13:29:32 05/25/2020 15:49:52 Asthma 000867073 J45.909 stable Adult heal th examination 789094686 Z00.00 had BW which looks good A1c looks great at 5.9 BP at home are much better at home so will continue to take at home [id number] [place] [facility] [address] [facility] [address],[place] [address] 06/21/2020 09:43:28 06/21/2020 10:19:54 Asthma 580839671 J45.909 stable Essential hypertension 28568447 I10 BP elevated still fluctuatin g up and down, no lower than 140/80 will increase her lisinopril to 10 mg and see her back in a month [id number] [facility] [facility] [address] [facility] [address],[place] [address] 07/25/2020 09:26:40 07/25/2020 14:04:35 Essential hypertension 30613524 I10 BP is still elevated at home Gastroesop hageal reflux disease 709149820 K21.9 stable Obesity 290970300 E66.9 going to the gym 2 to 3 times per week and swims working on diet as well [id number] [facility] [facility] [address] [facility] [address],[place] [address] 08/09/2020 10:12:42 08/09/2020 12:09:32 Fatty stool 45134115 R19.5 will start with workup to see if related to either pancreas, liver, or just her intestines will also due stool culture to discern if any relation to blood stool or fatty component to it pt agrees with this plan Melena 2989308 K92.1 the patient reports dark stool, very uncharacte ristic of her usually may be related to on going episodes of constipati on and diarrhea or could be an internal bleed that needs to be worked up Hematochezia 006618542 K 92.1 will follow up after bw and stool cultures come in Abdominal pain 42043734 R10.9 will aslo have US done on patient to see if any fluid build up, inflammati on or dysfunctio n [id number] [place] [facility] [address] [facility] [address],[place] [address] 08/23/2020 10:08:24 08/23/2020 12:01:33 Cholelithiasis without obstruction 77543055 K80.20 will fu in end of august to see how she is feeling after surgery and see if symptoms have resolved Essential hypertension 06998082 I10 BP has finally shown some improvemen t with medication at home will fu in a month [id number] [facility] [address] [facility] [address],[place] [address] 09/19/2020 09:24:59 09/19/2020 10:06:42 Obesity 550841095 E66.9 working on going back to the gym to start swimming again Body mass index 40+ - severely obese 709320857 Z68.41 will send to specialist for discussion on diet going forward Essential hypertension 48257559 I10 BP fluctuatin g, will start on metoprolol with lisinopril and fu at her next appt History of cholecystectomy 977324515 Z90.49 surgery went well, healing is going well will continue to fu with her [id number] [facility] [facility] [address] [facility] [address],[place] [address] 12/05/2020 13:33:50 12/06/2020 08:41:11 Asthma 180581318 J45.909 stable, no interventi on Essential hypertension 95689516 I10 BP much improved from prior appts and ER fu the patient is tolerable to the medication , mild [id number] [facility] [address] [facility] [address],[place] [address] 02/01/2021 11:43:22 02/01/2021 14:50:49 Suspected COVID-19 331626351 Z03.89 already scheduled for a testwill call with results Cough 19410975 R05 will start on pred and abxwill also give cough suppressan t Muscle pain 02513637 M79 .10 muscles achescan use ibu and APAP Acute exac erbation of asthma 357056701 J45.901 will start on prednisone and z-james Asthma 534202273 J45.90 9 asthma exacerbati on due to URI (either due to COVID or other viral/bact erial infection) [id number] [place] [facility] [address] [facility] [address],[place] [address] 03/07/2021 13:29:52 03/07/2021 14:06:24 Essential hypertension 36071775 I10 switch medication due to swelling of the LE and reduced HRwill add HTCZ Obesity 100512912 E66.3 will trial medication f for weight losshas fu with dietiticai n in sept Edema of l ower extremity 385713184 R60.0 will add HCTZ Fractured nasal bones 26 9403775 S02.2XXA plastic surgeon cleared her, stable fracture healing appropriat renato [id number] [place] [facility] [address] [facility] [address],[place] [address] 04/07/2021 09:59:45 04/11/2021 13:43:53 Essential hypertension 70744522 I10 BP is excellentt olerates well Obesity 063306163 E66.3 doing well on the medication phentermin esome dry mouth, otherwise tolerable Asthma 899762092 J45.90 9 stable Impaired f asting glycemia 016696235 R73.01 will fu with 3 mo checks of her A1c [id number] [place] [facility] [address] [facility] [address],[place] [address] 05/15/2021 14:58:27 05/15/2021 16:20:28 Essential hypertension 43979705 I10 the patient had a syncope episode due to hypotensiv e episodewil l decrease meds down too 20 mg of just lisinopril Acute inju ry of kidney 8455286961 7960862 N17.8 dehydrated and possibly due to the HTCZwill stop the HTCZ and metoprolol , will continue just the lisinopril Syncope 621972785 R55 resolved due to hypo-tensi on and dehydratio n [id number] [place] [facility] [address] [facility] [address],[place] [address] 07/07/2021 09:19:04 07/07/2021 15:51:36 Essential hypertension 07837068 I10 will increase to only 30 mg to avoid hypotensio n again Obesity 818204438 E66.3 doing well on the medication phentermin esome dry mouth, otherwise tolerable Type 2 aaron betes mellitus 91951681 E11.9 A1c is 5.7 which is excellent [id number] [place] [facility] [address] [facility] [address],[place] [address] 07/26/2021 09:17:56 07/26/2021 15:52:36 Asthma 947194023 J45.21 stable Type 2 aaron betes mellitus 17383817 E11.9 A1c is 5.7 which is excellentc ontinue Body mass index 40+ - severely obese 240284842 Z68.41 will send to specialist for discussion on diet going forward Acute bronchitis 3135266 2 J20.8 will treat for acute bronchitis [id number] [place] [facility] [address],[place] [address] 10/03/2021 09:58:19 10/03/2021 15:51:25 Essential hypertension 86782546 I10 increase lisinopril dosage to 40 mg Dyspnea 162877010 R06.02 has fu with pulmonolog y Asthma 312358212 J45.21 continue inhalers Obesity 506554307 E66.3 hold on the med for this [id number] [place] [facility] [address] [facility] [address] [address] 10/31/2021 10:48:08 11/01/2021 09:49:59 Dysuria 73452377 R30.0 will start on abx, and send urine out Acute urin jamel tract infection 378551226 N10 will start on bactrim BID for 7 dayscurren [place] [id number] [place] [facility] [address],[place] [address] 02/05/2022 14:29:31 02/05/2022 15:40:42 Fall 2326314 R29.6 will fu with imaging to r/o fractures Contusion of right lower leg 2968710275 0357417 S80.11XA will fu with XRs and US of the lower leg Rib pain 003566319 R07.8 1 will r/o rib fracture Pain of ri ght shoulder joint 4083326579 4536801 M25.511 will r/o fracturema y need MRI 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 discussed starting tumeric for it's anti-infla mmatory properties since it isn't currently painful Essential hypertension 78315107 I10 stable today Dizziness 435037493 R42 will have her fu with ENT surgeon who saw her after her nose Asthma 386661630 J45.21 continue inhalersad d the albuterol in again for the next two weeks with the worsening cough again Adult [facility] th examination 001733203 Z00.00 had BW which looks good A1c looks great at 5.9 BP at home are much better at home so will continue to take at home [id number] [place] [facility] [address], [place] [address] 04/23/2022 10:41:55 04/23/2022 11:46:12 Asthma 191036391 J45.21 continue inhalersad d the albuterol in again for the next two weeks with the worsening cough again Pain of ri ght lower leg 6535371782 77985 M79.661 will send to ortho for further eval Screening for osteoporosis 227690710 Z13.820 will set up with bone density Gynecologi c examination 68749456 Z01.419 will fu with new electron beam welder setter referral Essential hypertension 96477094 I10 stable today [id number] [place] [facility] [address],[place] [address] 07/27/2022 10:02:37 07/27/2022 13:47:26 Asthma 678050962 J45.21 continue inhalersad d the albuterol in again for the next two weeks with the worsening cough again Type 2 aaron betes mellitus 23341874 E11.9 A1c is 5.7 which is excellentc ontinue Body mass index 40+ - severely obese 596901402 Z68.41 will send to specialist for discussion on diet going forward Obesity 307322990 E66.3 will restart the phentermin e 15 mgwill start the topimax in three weeks for plateau Screening for osteoporosis 738775648 Z13.820 will set up with bone density again Acute bronchitis 0973950 2 J20.8 will treat for acute bronchitis as she is developing symptoms [id number] [place] [facility] [address] [facility] [address],[place] [address] 11/09/2022 10:26:06 11/12/2022 08:17:59 Asthma 682429714 J45.21 stable today Essential hypertension 21122425 I10 stable today Gastroesop hageal reflux disease 594932679 K21.9 stable Overactive urinary bladder 844040358 N32.81 has a f/u with uro/electron beam welder setter Type 2 aaron betes mellitus 79205472 E11.9 will try setting up with mounjaro Edema of l ower extremity 492463464 R60.0 will do a course of lasix [id number] [place] [facility] [address] [facility] [address],[place] [address] 02/05/2023 10:30:14 02/05/2023 12:27:15 Asthma 146246331 J45.21 stable today Essential hypertension 75036048 I10 stable today Gastroesop hageal reflux disease 171770399 K21.9 stable Impaired f asting glycemia 922891434 R73.01 working on diet Type 2 aaron betes mellitus 26007731 E11.9 will switch to mounjaro to ozempicHer A1c is excellent on the mounjaro due to the poor side effect profile Edema of l ower extremity 101602433 R60.0 will do a course of lasix [id number] [place] [facility] [address] [facility] [address],[place] [address] 04/30/2023 09:57:09 04/30/2023 10:56:07 Type 2 diabetes mellitus 07361022 E11.9 agreed to go up in the dose Asthma 098816752 J45.21 stable todayno issues Essential hypertension 81489046 I10 stable today [id number] [place] [facility] [address] [facility] [address],[place] [address] 07/26/2023 09:53:20 07/26/2023 14:20:09 Asthma 682788559 J45.21 acute asthma exacerbati onstart on z-james and prednisone Type 2 aaron betes mellitus 16462273 E11.9 agreed to go up in the dose Body mass index 40+ - severely obese 033248945 Z68.41 stable Acute kidney injury 1466 9001 N17.8 resolved Acute bronchitis 8667708 2 J20.8 will treat for acute bronchitis as she is developing symptoms [id number] [place] [facility] [address],[place] [address] 07/31/2023 08:00:34 07/31/2023 14:12:55 Type 2 diabetes mellitus 25803207 E11.9 agreed to go up in the dose Urinary incontinence 165 885777 N39.46 will f/u with urogyn, discussed with going ahead of Botox [id number] [place] [facility] [address],[place] [address] 11/13/2023 14:16:15 11/13/2023 14:53:17 Type 2 diabetes mellitus 70184460 E11.9 agreed to go up in the dose to the 2 mg Essential hypertension 04758196 I10 stable today [id number] [place] [facility] [address] [address] 02/11/2024 11:12:52 02/12/2024 13:03:48 Depression screening 389018345 Z13.31 negative Type 2 aaron betes mellitus 35499116 E11.9 stable on the current dose Asthma 846318662 J45.21 stable At [facility] ed risk for falls 418118911 Z91.81 has been stablemod risk given hx of falls Osteopenia 639535667 M85 .80 will set up with new order [id number] [place] [facility] [address],[place] [address] 05/29/2024 11:04:26 05/29/2024 11:36:46 Asthma 450616875 J45.21 stable Essential hypertension 93746213 I10 stable today Type 2 aaron betes mellitus 86655035 E11.9 stable on the current dose Pleural effusion 9951905 8 J90 resolvedno recent pulm infections Screening mammography 24 135623 Z12.31 due for MM Health Concerns Section Related Observation LastModified by Organization Detai ls LastModified Time None Recorded Concern Status LastModified by Organization Details LastModified Time None Recorded Advance Directives Directive None Recorded Payers Encounter Date Sequence Insurance Name Policy Number Policy [place] Covered Member ID [place] Member ID Guarantor Name 07/26/2023 2 [employer]AN - [employer] [id number] Larry Contreras [id number] Jillayne T Cary 07/26/2023 1 [place] [employer] Jillayne T Diane [id number] Jillayne T Diane 07/31/2023 2 [employer] INDEMNITY PLAN - [employer] [id number] Larry Contreras [id number] Jillayne T Diane 07/31/2023 1 [place] Jillayne T Diane [id number] Jillayne T Diane 11/13/2023 2 [employer] INDEMNITY PLAN - [employer] [id number] aLrry Contreras [id number] Jillayne T Cary 11/13/2023 1 [place] [employer] Jillayne T Cary [id number] Jillayne T Diane 02/11/2024 2 [employer] INDEMNITY PLAN - [employer] [id number] Larry Nievess [id number] Jillayne T Cary 02/11/2024 1 [place] Jillayne T Diane [id number] Jillayne T Diane 05/29/2024 2 COMMONWEALTH INDEMNITY PLAN - [employer] [id number] Larry Contreras [id number] Jillayne T Diane 05/29/2024 1 [place] [employer] Jillayne T Diane [id number] Jillayne T Diane Notes Date Note Type Note Provider Name a nd Address Organization Details Recorded Time text/html c/o nasal congestion, h/a, deep cough-expectorating yellow sputum, sore throat, covid negative x2 (last time was yesterday) The patient is participating in this appointment via telemedicine communication with a phone call/video calling service (Doxy)The patient consents to use of these platforms in place of an in-person appointment due to either sick symptoms the patient is presenting with or current office closure due to COVID exposure in order to keep our office staff and patients safe the patient has nasal congestion, deep productive cough with yellow sputum production, loss of appetitenotes intermittent dizziness and diarrheanotes sore throat, COVID-19 negative x 2 days hx of asthma, has been going on for two weeks now without improvementhas been using Theraful OTC and mucinex without relief of symptoms she has been using her inhaler three to four times per day without improvement of symptoms agreed to start on z james and pred for asthma exacerbationno symptoms or signs suggestive of pna at this time, will hold XR for now LEIGHTON ROCK [address] [place] [address], [phone], [facility] 07/26/2023 11:43:40 4 text/html 3 mos f/u The patient is participating in this appointment via telemedicine communication with a phone call/video calling service ([employer])The patient consents to use of these platforms in place of an in-person appointment due to either sick symptoms the patient is presenting with or current office closure due to COVID exposure in order to keep our office staff and patients safe Patient presents today for follow-up for Type 2 Diabetes Recent lab showed an A1c of 5.8% The patient has been compliant with medicationsThe complications patient is experiencing are no reduction in weight, need to increase dosage of ozempicThe patient has current concerns about related to their diabetes diagnosis about dose adjustmentThe patient has been compliant with lifestyle changes including dietary changes, exercise and healthy habits Discussion about feet reveals no changesDiscussion about eyes reveal no changes Treatment plan going forward is continue to titrate the ozempic will fu with UROGYN for going forward with the Botox injections into her bladder after discussion LEIGHTON ROCK [address] [place], [address], [facility] 07/31/2023 11:10:41 4 text/html f/u medication ICS: got the botox injections, doing well so far since she had it donesees Dr. Kirkholding off on the bladder sling will increase the ozempic 2 mg to see more of a weight loss effectdoing well otherwise; no side effects LEIGHTON ROCK [address] [place], [address], [facility] 11/13/2023 14:39:30 4 text/html 3 mo f/u the patient is doing really welljust got back from a family vacation from [place], [place] the patient reports that she had the botox injection of her bladder for the ICstates it works really well, no longer having the frequent incontinence T2DM: the patient is doing really well with the ozempicno issues or side effects at this time BP: today in the office the patient BP is 128/70 R knee pain the patient is doing well on the BP medication with no side effects and no adjustment of their medications needed today at the appointment well-controlled on medication denies chest pain, sob, ankle swelling, orthopnea, palpitations depression screening: The patient denies little pleasure in activities they find enjoyable, feeling depressed, difficulties sleeping, feeling tired or having little energy, change in appetite, feeling guilty, overwhelmed or unmotivated. The patient denies suicidal ideation, thoughts of hurting themselves or others. Their mood is appropriate, they show good judgement and clear understanding of the conversation. They are orientated to time, place and person. They are not expressing any concerning thoughts or actions that would need further investigation and treatment for mental health. otherwise LEIGHTON ROCK [address] [place], [address], [facility] 02/11/2024 11:42:18 4 text/html medication f/u the patient is doing wellher numbers look excellent Patient presents today for follow-up for Type 2 Diabetes Recent lab showed an A1c of 5.4% The patient has been compliant with medicationsThe complications patient is experiencing are nothing concerning (No abdominal pain or nausea or diarrhea)The patient has current concerns about related to their diabetes diagnosis (weight) still not losing weight on ozempicThe patient has been compliant with lifestyle changes including dietary changes, exercise and healthy habits Discussion about feet reveals normal examDiscussion about eyes reveal normal exam Treatment plan going forward is continue on current medications falls: The patient denies recent falls or recurrent falls. Denies instability, weakness, abnormal gait, or difficulties with movement. The patient wears correct, supportive shoes and is not otherwise severely visually impaired. The patient is full weight bearing and if using the assistance of a cane or walker feels supported and stable with the use of such devices. All medical conditions have been taken into account that may pose a risk for the patient for falls. Home giorgi, carpets and/or rugs do not pose a challenge for the patient. The patient has been educated about the use of vitamin D supplementation for bone health and prevention of hypotensive episodes that may increase risk for fall. All question and concerns were answered to the patient's satisfaction. HTN: today in the office the patient BP is 132/86 L armthe patient is doing well on the BP medication with no side effects and no adjustment of their medications needed today at the appointmentwell-contro lled on medicationdenies chest pain, sob, ankle swelling, orthopnea, palpitations LEIGHTON ROCK [address] [place], [address], [facility] 05/29/2024 11:32:49 OBGyn Episode No OBEpisode recorded.
[2024-08-26 13:30] LABS: Estimated Average Glucose 114 mg/dL; Hemoglobin A1C 134.2672 umol/L; Hemoglobin A1c % 5.6 % (<6.0); Total Hemoglobin (HGBA1C) 3528.6211 umol/L
== END 2024-08-26 10:38 | disposition home or self-care (01) ==
LOC: HO.MANLDS 10:37
PROVIDERS: Visit Provider Internal Medicine
DX: E11.9 Type 2 diabetes mellitus without complications (principal)
CPT/HCPCS: 36415; 83036

== ENCOUNTER 2024-09-21 11:43 | Outpatient (REF) | payer MEDICARE, OTHER, SELFPAY ==
[2024-09-21 13:14] LABS: Appearance Urine Clear; Color Urine Yellow; Glucose Urine UA Negative (Negative); Leukocyte Esterase Urine Negative (Negative); Nitrite Urine Negative (Negative); Specific Gravity - Urine 1.015 (1.005-1.025); Urine Blood Negative (Negative); Urine Ketones Negative (Negative); Urine Protein Negative (Neg-Trace)
--- OUTSIDE RECORDS SUMMARY | 2024-09-21 13:55 | XMS_ITS | Continuity of Care Document ---
Author Organization [facility], [facility] Address [address] [place] [address] [place] [address] Assessment No assessment recorded. Plan of Treatment Reminders Order Date Submit Date Provider Last Modified By Organization Details Last Modified Time Details Appointments FOLLOW UP 15 2024 11:45A M LEIGHTON ROCK Not available Not available Not available Lab None recorded. Referral None recorded. Procedures None recorded. Surgeries None recorded. Imaging MAMMO, screening , digital, bilateral 2024 025 [email or web address] [facility], [address] [place], [address], 09/15/2024 13:44:38 Medication Orders None recorded. Patient TargetsNo targets recorded. Patient InstructionsNo instructions recorded. Reason for Referral None Reported. Problems Name Problem SNOMED Code Status Onset Date Resolution Date Notes Provider Name and Address Organization Details Recorded Time Impaired fasting glycemia 901028724 Active 2018 Not Available [facility] 2 14:33:26 Dysuria 34873803 Active 2021 LEIGHTON ROCK [address] [place], [address], [facility] 2 11:22:34 Fall Active 2021 LEIGHTON ROCK [address] [place], [address], [facility] 2 14:43:53 Rib pain 645285709 Active 2021 LEIGHTON ROCK [address] [place], [address], [facility] 2 14:44:21 Pain of right shoulder joint 3785706604 8798961 Active 2021 LEIGHTON ROCK [address] [place], [address], [facility] 2 14:44:30 Contusio n of right lower leg 2368534527 1105946 Active 2021 LEIGHTON ROCK [address] [place], [address], [facility] 2 14:44:41 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 661139155 Active 2021 LEIGHTON ROCK [address] [place], [address], [facility] 2 14:47:55 Dizzines s 859597939 Active 2021 LEIGHTON ROCK [address] [place], [address], [facility] 2 14:50:07 COVID-19 474284095 [facility] 2 10:45:23 Pain of right lower leg 5308157322 42386 Active 2021 LEIGHTON ROCK [address] [place] [address], [address], [facility] 2 11:05:06 Mass of lower limb 330821562 Active 2021 LEIGHTON ROCK [address] [place] [address], [address], [facility] 2 16:47:25 Guerra laminar sclerosi s 888244495 Active 2021 LEIGHTON ROCK [address] [place], [address], [facility] 2 10:21:50 Pleural effusion 46275896 Active 2022 LEIGHTON ROCK [address] [place], [address], [facility] 3 16:16:16 Overacti ve urinary bladder 264248520 Active 2022 LEIGHTON ROCK [address] [place], [address], [facility] 3 10:39:17 Type 2 diabetes mellitus 32914306 Active 2022 LEIGHTON ROCK [address] [place] [address], [address], [facility] 3 10:42:28 Edema of lower extremit y 652598817 Active 2022 LEIGHTON ROCK [address] [place] [address], [address], [facility] 3 10:44:49 Urinary incontin ence 082774494 Active 2023 LE[facility]ON ROCK [address] [place] [address], [address], [facility] 4 11:05:14 Osteopen ia 909721177 Active 2023 LEIGHTON ROCK [address] [place] [address], [address], [facility] 4 11:33:42 Essentia l hyperten geeta 16947140 Active 2017 Not Available [facility] 2 14:33:25 Hypergly cemia 88584914 Completed 201710/22/2018 Windy Qiu [employer], S [address] [place] [address], [address], [facility] 9 05:36:52 Obesity 508254903 Active 2017 Not Available [facility] 2 14:33:25 Gastroes ophageal reflux disease 682920951 Active 2017 Not Available [facility] 2 14:33:26 Internal hemorrho ids 86239425 Active 2017 Not Available [facility] 2 14:33:26 Polyp of colon 15139206 Active 2017 Not Available [facility] 2 14:33:26 Reactive airways dysfunct ion syndrome 046077864 Completed 201701/28/2018 Yue lentz [place] [facility] 8 14:36:40 Asthma 918136626 Active 2017 reactive airway syndrome Not Available [facility] 2 14:33:26 Problem Notes None recorded. Procedures Surgical History Date Name Laterality Status Provider Name and Address Organization Details Recorded Time 025 colonoscopy completed LEIGHTON ROCK [address] [place] [address], [address], [facility] 09/15/2024 12:03:42 021 cholecystectomy completed LEIGHTON ROCK [address] [place] [address], [address], [facility] 09/19/2020 09:36:58 020 Colonoscopy completed [facility] 05/25/2020 13:33:22 019 Joint Replacement completed Yue Carval[facility] 05/25/2020 13:33:22 019 Most Recent Mammogram completed [facility] 03/09/2019 08:31:30 019 total replacement of left hip joint completed October NAKITA Mathur [address] [place], [address], [facility] 01/12/2019 10:46:18 019 Joint Replacement completed [facility] 05/25/2020 13:33:22 016 Date of Last Pap Smear completed [facility] 03/09/2019 08:31:00 013 Colonoscopy completed [facility] 03/09/2019 08:32:53 10/14/1 987 Caesarean Section completed Yue Zeke [facility] 05/25/2020 13:33:22 984 Caesarean Section completed Yuedoroteo Alanis [facility] 05/25/2020 13:33:22 981 [facility] 05/25/2020 13:33:22 979 [facility] 10/21/2018 16:02:01 Caesarean Section completed Windy Qiu NP, S [address] [place], [address], [facility] 10/22/2018 10:45:44 Imaging Results None recorded. Procedure Notes None recorded. Medical Equipment None Reported. Allergies Allergen ID Allergen Name Allergen Category Reaction Reaction Severity Criticality Documentation Date Start Date Code Code System Note Provider Name and Address Organization Details Recorded Time 1836 Compazine medicatio n seizure Not available Not available 01/29/2018 81906 6 [facility] 8 14:00:45 2953 iodine medicatio n Not available Not available Not available 10/21/2018 5933 [facility] 9 16:01:23 7051 Mounjaro medicatio n swelling severe Not available 02/05/2023 84713 34 RxNorm LEIGHTON ROCK [address] [place], [address], [facility] 3 11:20:24 Medications Name Sig Start [...] Available bisacodyl 5 mg tablet,de layed release TAKE 4 TABLETS BY MOUTH DIRECTED BY THE OFFICE FOR 1 DAY active Not Available Not Available No t Available lisinopri l 5 mg tablet 06/21 [...] Not Available Not Available No t Available fluticaso ne propionat e 110 mcg/actua tion [...] completed Not Available Not Available Not Available Bactrim DS 800 mg-160 mg tablet Take 1 tablet every 12 hours by oral route for 7 days. 2024 active Not Available Not Available Not Avai lable Pneumovax -23 25 mcg/0.5 mL injection syringe [...] gram-22.7 4 gram-6.74 gram-5.86 gram oral solution MIX AND DRINK DIRECTED active Not Available Not Available No t Available Myrbetriq 25 mg tablet,ex tended release [...] INHALE 1 PUFF BY MOUTH EVERY DAY active Not Available Not Available No t Available Flonase Allergy Relief 50 mcg/actua tion nasal spray,kadeem pension [place] 1 spray every day by intranas al [...] injector INJECT 2 MG UNDER THE SKIN ONE DAY A WEEK active Not Available Not Available No t Available Mounjaro 2.5 mg/0.5 mL subcutane ous pen [...] and Address Organization Details Last Updated DateTime 5 163.83 cm 42 kg/m2 947930. 06 g 85 /min 94 % 94 % 132 mm[Hg] 86 mm[Hg] [facility] 5 11:47:16 Social History Question Answer Notes LastModified by Organizat ion Details LastModified Time Tobacco Smoking Status Never Smoker Not Available [facility] 05/24/2020 03:36:23 What Was The Date Of Your Most Recent Tobacco Screening? 09/15/2024 [email or web address] Information not available 09/15/2024 Do You Or Have You Ever Used Any Other Forms Of Tobacco Or Nicotine? No [email or web address] Information not available 11/09/2022 Sex: Unknown Functional Status None recorded. Mental Status None recorded. Family History Relationship Description Onset Age of this Age Resolved Age Notes LastModified by Organization Details LastModified Time Mother Osteoarthrit is [email or web address] Not available 2023 14:17:15 Father Diabetes mellitus 62 68 CAD [email or web address] Not available 2018 10:44:47 Brother Impaired fasting glycemia [email or web address] Not available 2023 14:17:15 Medical History Condition Response Coronary Artery Disease N Gout N Other N Kidney Stones N Blood Diseases N Blood Transfusion N Breast Cancer N COPD N Depression N Lung Disease N Defects or Inherited Disease N Difficulty [...] Recorded Time Influenza, split virus, quadrivalent, preservative 04/14/20 21 completed Not Available [facility] 09/09/2023 01:06:25 COVID-19, mRNA, LNP-S, PF, 100 mcg/0.5mL dose or 50 mcg/0.25mL dose 05/23/20 21 completed Not Available [facility] 09/09/2023 01:06:25 COVID-19, mRNA, LNP-S, PF, 30 mcg/0.3 mL dose 10/19/19 22 completed Not Available [facility] 09/09/2023 01:06:25 COVID-19, mRNA, LNP-S, PF, 100 mcg/0.5mL dose or 50 mcg/0.25mL dose 04/18/20 22 completed Not Available [facility] 09/09/2023 01:06:25 Influenza, split virus, quadrivalent, preservative 04/18/20 22 completed Not Available [facility] 09/09/2023 01:06:25 SARS-COV-2 (COVID-19) vaccine, UNSPECIFIED 04/21/20 23 completed Not Available [facility] 09/09/2023 01:06:25 influenza nasal, unspecified formulation 04/13/20 24 completed LEIGHTON ROCK [address] [place] [address], [address], [facility] 09/15/2024 11:59:46 Respiratory syncytial virus (RSV) vaccine, unspecified 04/13/20 24 completed LEIGHTON ROCK [address] [place] [address], [address], [facility] 09/15/2024 12:00:11 pneumococcal, unspecified formulation 09/27/19 13 completed Not Available [facility] 09/09/2023 01:06:25 Tdap 03/10/20 19 completed Not Available [facility] 09/09/2023 01:06:25 pneumococcal polysaccharide PPV23 03/10/20 19 completed Not Available [facility] 09/09/2023 01:06:25 Influenza, split virus, quadrivalent, preservative 04/14/20 18 completed Not Available [facility] 08/08/2019 02:46:31 Influenza, split virus, quadrivalent, PF 04/14/20 18 completed Not Available [facility] 08/08/2019 02:46:31 Influenza, split virus, quadrivalent, preservative 06/16/20 19 completed Not Available [facility] 09/09/2023 01:06:25 zoster, unspecified formulation 03/30/20 20 completed [facility] 09/09/[facility]23 01:06:25 Influenza, split virus, quadrivalent, preservative 03/30/20 20 completed Not Available [facility] 09/09/2023 01:06:25 zoster, unspecified formulation 05/31/20 20 completed Not Available [facility] 09/09/2023 01:06:25 COVID-19, mRNA, LNP-S, PF, 100 mcg/0.5mL dose or 50 mcg/0.25mL dose 09/15/19 21 completed Not Available [facility] 09/09/2023 01:06:25 COVID-19, mRNA, LNP-S, PF, 100 mcg/0.5mL dose or 50 mcg/0.25mL dose 09/15/19 21 completed Not Available [facility] 09/09/2023 01:06:25 Past Encounters Encounter ID Performer Location Encounter Start Date Encounter Closed Date Diagnosis/Indication Diagnosis SNOMED-CT Code Diagnosis ICD10 Code Diagnosis Note [id number] LEIGHTON ROCK [facility] [address],[place] [address] 09/15/2024 11:40:17 09/15/2024 13:44:38 Type 2 diabetes mellitus 35927625 E11.9 stable on the current dose Fall R29.6 stable, no recent falls Obesity 654567062 E66.3 will restart the phentermin e 15 mgwill start the topimax in three weeks for plateau Body mass index 40+ - severely obese 702023108 Z68.41 weight has been stable at 248 lbs, no major changeswil l increase activity Screening mammography of bilateral breasts 5965775807 81070 Z12.31 Health Concerns Section Related Observation LastModified by Organization Detai ls LastModified Time None Recorded Concern Status LastModified by Organization Details LastModified Time None Recorded Payers Encounter Date Sequence Insurance Name Policy Number Policy [place] Covered Member ID [place] Member ID Guarantor Name 09/15/2024 2 [facility] IN[facility] - [facility] [id number] Larry Contreras [id number] Bryn Contreras 09/15/2024 1 [place]IC[place] [employer] Bryn Contreras [id number] Bryn Contreras Notes Date Note Type Note Provider Name a nd Address Organization Details Recorded Time 09/15/2024 text/html 3 mos f/u asthma: stable T2DM: Patient is a well-appearing 69 year old female who presents for followup on well controlled type 2 diabetes Patient presents today for follow-up for Type 2 Diabetes Recent lab showed an A1c of 5.6% The patient has been compliant with medicationsThe complications patient is experiencing are n/a, doing great, numbers are fantasticThe patient has current concerns about related to their diabetes diagnosis are the weight, whichThe patient has been compliant with lifestyle changes including dietary changes, exercise and healthy habits Discussion about feet reveals normal examDiscussion about eyes reveal normal exam (recent exam in Jun, no retinopathy or changes) Treatment plan going forward is continuing on medicationhas to hold the ozempic due to colonoscopy tomorrow fall: no recent falls obesity: stable, no weight changes needs screening MM, order submitted LE[facility]ON ROCK [address] [facility], [place], [address], [facility] 09/15/2024 12:05:51 OBGyn Episode No OBEpisode recorded.
--- OUTSIDE RECORDS SUMMARY | 2024-09-21 13:56 | XMS_ITS | Data Portability ---
Author Organization [facility] Home Service Address [address] [place] [address] Assessment Encounter Date Assessment Date Assessment LastModified by Organization Details LastModified Time 07/31/2023 07/31/2023 Patient agreed and verbally consents to this audio and video Telehealth appt via a secure platform [email or web address] Not available 07/31/2023 11:05:05 Plan of Treatment Reminders Order Date Submit Date Provider Last Modified By Organization Details Last Modified Time Details Appointments FOLLOW UP 15 2024 11:45A M LEIGHTON ROCK Not available Not available Not available Lab CMP, serum or plasma 2023 [facility], [address] [place] [address], [id number], 05/29/2024 11:48:07 lipid panel, blood 2023 024 [facility], [address] [place] [address], [id number], 05/29/2024 11:48:07 CBC w/ auto diff 2023 024 [facility], [address] [place] [address], [id number], 05/29/2024 11:48:07 hemoglobi n A1c, QN, blood 2023 024 [facility], [address] [place] [address], [id number], 05/29/2024 11:48:07 CMP, serum or plasma 2023 024 [facility], [address] [place] [address], [id number], 02/19/2024 11:26:48 lipid panel, blood 2023 024 [facility], [address] [place] [address], [id number], 02/19/2024 11:26:49 CBC w/ auto diff 2023 024 [facility], [address] [place] [address], [id number], 02/11/2024 11:39:29 hemoglobi n A1c, QN, blood 2023 024 [facility], [address] [place] [address], [id number], 02/19/2024 11:26:48 hemoglobi n A1c, QN, blood 2023 024 [facility], [address] [place] [address], [id number], 08/27/2024 12:45:46 CMP, serum or plasma 2023 024 [facility], [address] [place] [address], [id number], 05/18/2024 11:38:06 lipid panel, blood 2023 025 [facility], [address] [place] [address], [id number], 02/19/2024 11:26:49 CMP, serum or plasma 2023 025 [facility], [address] [place] [address], [id number], 05/18/2024 11:38:06 hemoglobi n A1c, QN, blood 2024 025 [facility], [address] [facility], [place], [address], 09/15/2024 12:04:19 Referral None recorded. Procedures None recorded. Surgeries None recorded. Imaging MAMMO, screening , digital, bilateral 2024 025 [email or web address] [facility], [address] [place], [address], 09/15/2024 13:44:38 MAMMO, screening , digital, bilateral 2023 024 [email or web address] Not available 06/12/2024 08:32:02 bone density 2023 024 [email or web address] Not available 02/25/2024 08:19:59 Medication Orders fluticaso ne propionat e 110 mcg/actua tion HFA aerosol inhaler 2023 024 [id number], [address] [place], [place], [id number], 05/29/2024 11:21:31 Ozempic 2 mg/dose (8 mg/3 mL) subcutane ous pen injector 2023 024 [facility][id number], [address] [place], [place], [id number], 11/13/2023 14:30:56 propranol ol ER 60 mg capsule,2 4 hr,extend ed release 2023 024 [id number], [address] [place], [place], [id number], 11/13/2023 14:38:01 Ozempic 1 mg/dose (4 mg/3 mL) subcutane ous pen injector 2023 024 [id number], [address] [place] [address], [phone], 11/13/2023 14:30:49 Patient TargetsNo targets recorded. Patient InstructionsNo instructions recorded. Reason for Referral None Reported. Results Created Date Observation Date Name Description Value Unit Range Abnormal Flag Note LastModifiedBy Organization Detail LastModifiedTime Result Notes None recorded. Problems Name Problem SNOMED Code Status Onset Date Resolution Date Notes Provider Name and Address Organization Details Recorded Time Impaired fasting glycemia 934510630 Active 2018 Not Available [facility] 2 14:33:26 Dysuria 58497527 Active 2021 LEIGHTON ROCK [address] [place], [address], [facility] 2 11:22:34 Fall Active 2021 LEIGHTON ROCK [address] [place], [address], [facility] 2 14:43:53 Rib pain 012021900 Active 2021 LEIGHTON ROCK [address] [place], [address], [facility] 2 14:44:21 Pain of right shoulder joint 4548319484 8153955 Active 2021 LEIGHTON ROCK [address] [place], [address], [facility] 2 14:44:30 Contusio n of right lower leg 5420161093 9142804 Active 2021 LEIGHTON ROCK [address] [place], [address], [facility] 2 14:44:41 Temporom andibula r joint-pa 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 nction syndrome 004212314 Active 2021 LEIGHTON ROCK [address] [place], [address], [facility] 2 14:47:55 Dizzines s 839202285 Active 2021 LEIGHTON ROCK [address] [place], [address], [facility] 2 14:50:07 COVID-19 123845745 Active 2021 [facility] 2 10:45:23 Pain of right lower leg 5449538936 74479 Active 2021 LEIGHTON ROCK [address] [place], [address], [facility] 2 11:05:06 Mass of lower limb 238627045 Active 2021 LEIGHTON ROCK [address] [place], [address], [facility] 2 16:47:25 Guerra laminar sclerosi s 812351849 Active 2021 LEIGHTON ROCK [address] [place], [address], [facility] 2 10:21:50 Pleural effusion 69028094 Active 2022 LEIGHTON ROCK [address] [place], [address], [facility] 3 16:16:16 Overacti ve urinary bladder 276193998 Active 2022 LEIGHTON ROCK [address] [place], [address], [facility] 3 10:39:17 Type 2 diabetes mellitus 18737099 Active 2022 LEIGHTON ROCK [address] [place], [address], [facility] 3 10:42:28 Edema of lower extremit y 257364973 Active 2022 LEIGHTON ROCK [address] [place], [address], [facility] 3 10:44:49 Urinary incontin ence 939202672 Active 2023 LEIGHTON ROCK [address] [place], [address], [facility] 4 11:05:14 Osteopen ia 170940627 Active 2023 LEIGHTON ROCK [address] [place], [address], [facility] 4 11:33:42 Essentia l hyperten geeat 99962359 Active 2017 Not Available [facility] 2 14:33:25 Hypergly cemia 37503072 Completed 201710/22/2018 Windy Qiu NP, S [address] [place], [address], [facility] 9 05:36:52 Obesity 512701756 Active 2017 Not Available [facility] 2 14:33:25 Gastroes ophageal reflux disease 740290156 Active 2017 Not Available [facility] 2 14:33:26 Internal hemorrho ids 29026300 Active 2017 Not Available [facility] 2 14:33:26 Polyp of colon 88050688 Active 2017 2013 Not Available [facility] 2 14:33:26 Reactive airways dysfunct ion syndrome 098711834 Completed 201701/28/2018 [facility] 8 14:36:40 Asthma 025522701 Active 2017 reactive airway syndrome Not Available [facility] 2 14:33:26 Problem Notes None recorded. Procedures Surgical History Date Name Laterality Status Provider Name and Address Organization Details Recorded Time 025 colonoscopy completed LEIGHTON ROCK [address] [place], [address], [facility] 09/15/2024 12:03:42 021 cholecystectomy completed LEIGHTON ROCK [address] [place], [address], [facility] 09/19/2020 09:36:58 020 Colonoscopy completed [facility] 05/25/2020 13:33:22 019 Joint Replacement completed [facility] 05/25/2020 13:33:22 019 Most Recent Mammogram completed [facility] 03/09/2019 08:31:30 019 total replacement of left hip joint completed NAKITA Raya [address] [place], [address], [facility] 01/12/2019 10:46:18 019 Joint Replacement completed [facility] 05/25/2020 13:33:22 016 Date of Last Pap Smear completed [facility] 03/09/2019 08:31:00 013 Colonoscopy completed [facility] 03/09/2019 08:32:53 987 Caesarean Section completed [facility] 05/25/2020 13:33:22 984 Caesarean Section completed [facility] 05/25/2020 13:33:22 981 Caesarean Section completed [facility] 05/25/2020 13:33:22 979 Laparoscopy completed [facility] 10/21/2018 16:02:01 Caesarean Section completed Windy Qiu NP, S [address] [place], [address], [facility] 10/22/2018 10:45:44 Imaging Results None recorded. Procedure Notes None recorded. Medical Equipment None Reported. Allergies Allergen ID Allergen Name Allergen Category Reaction Reaction Severity Criticality Documentation Date Start Date Code Code System Note Provider Name and Address Organization Details Recorded Time 1836 Compazine medicatio n seizure Not available Not available 01/29/201836567 6 RxNorm Yue lentz [facility] 8 14:00:45 2953 iodine medicatio n Not available Not available Not available 10/21/2018 5933 RxNorm Yue lentz [facility] 9 16:01:23 7051 Mounjaro medicatio n swelling severe Not available 02/05/2023 00638 34 RxNorm LEIGHTON ROCK [address] [place], [address] 3 11:20:24 Medications Name Sig Start [...] Relief 50 mcg/actua tion nasal spray,kadeem pension [place] 1 spray every day by intranas al [...] Updated DateTime 4 163.2 cm 44.5 kg/m2 084738. 69 g 68 /min 18 /min 100 % 100 % 132 mm[Hg] 82 mm[Hg] [facility] 4 14:19:57 Date Recorded Body height Body mass index (BMI) Body weight Heart rate Oxygen saturation Oxygen saturation in Arterial blood by Pulse oximetry Systolic blood pressure Diastolic blood pressure Provider Name and Address Organization Details Last Updated DateTime 4 163.83 cm 41.1 kg/m2 558741. 95 g 76 /min 98 % 98 % 128 mm[Hg] 70 mm[Hg] Linden Ruffin [facility] 4 11:17:37 Date Recorded Body height Body mass index (BMI) Body weight Heart rate Oxygen saturation Oxygen saturation in Arterial blood by Pulse oximetry Systolic blood pressure Diastolic blood pressure Provider Name and Address Organization Details Last Updated DateTime 4 163.83 cm 41.9 kg/m2 542545. 19 g 77 /min 98 % 98 % 132 mm[Hg] 86 mm[Hg] Bri Drew [facility] 4 11:11:21 Date Recorded Body height Body mass index (BMI) Body weight Heart rate Oxygen saturation Oxygen saturation in Arterial blood by Pulse oximetry Systolic blood pressure Diastolic blood pressure Provider Name and Address Organization Details Last Updated DateTime 5 163.83 cm 42 kg/m2 414732. 06 g 85 /min 94 % 94 % 132 mm[Hg] 86 mm[Hg] Bripatsy Melgar [facility] 5 11:47:16 Social History Question Answer Notes LastModified by Organizat ion Details LastModified Time Tobacco Smoking Status Never Smoker Not Available [facility] 05/24/2020 03:36:23 What Was The Date Of Your Most Recent Tobacco Screening? 09/15/2024 [email or web address] Information not available 09/15/2024 Do You Or Have You Ever Used Any Other Forms Of Tobacco Or Nicotine? No [email or web address] Information not available 11/09/2022 Sex: Unknown Functional [...] History Condition Response Coronary Artery Disease N Other N Gout N Blood Diseases N Kidney Stones N Blood Transfusion N Breast Cancer N Depression N COPD N Lung Disease N Defects or Inherited Disease N Difficulty Swallowing N Anesthesia Complications N Anxiety Disorder N Muscle, Joint, or Bone Problems N Obesity N Vision or Eye Problems N Arthritis N Polyps N Infertility N Mental Disorder N Cancer N Varicosities N Stroke N Endometriosis N Bladder or Kidney Problems N High Cholesterol N Liver Disease N Fibromyalgia N Headaches N Kidney Disease N Allergies/Hayfever N Heart Problems N Hospitalizations N Thyroid Problems N GI Problems N Skin Problems N Eating Disorder N Anemia N MRSA exposure N Constipation N Mental Illness N Ovarian Cancer N Diabetes Y Seizures/Epilepsy N Tuberculosis N Congestive Heart Failure (CHF) N Eczema N Diverticulitis N Abuse/Domestic Violence N Asthma Y Reflux/GERD Y Hepatitis N Heart Disease N Pulmonary Embolism N Hypertension N Osteoporosis N Chicken Pox N Autism Spectrum Disorder (ASD) N Gynecological History Statement/Question Response Date of Last Pap Smear 11/18/2015 Most Recent Mammogram 02/18/2019 Obstetrics History GPAL:G 0 P 0 0 0 0 Immunizations Vaccine Type Date Status Note Provider Nam e and Address Organization Details Recorded Time Influenza, split virus, quadrivalent, preservative 04/14/20 21 completed Not Available [facility] 09/09/2023 01:06:25 COVID-19, mRNA, LNP-S, PF, 100 mcg/0.5mL dose or 50 mcg/0.25mL dose 05/23/20 21 completed Not Available [facility] 09/09/2023 01:06:25 COVID-19, mRNA, LNP-S, PF, 30 mcg/0.3 mL dose 10/19/19 22 completed Not Available [facility] 09/09/2023 01:06:25 COVID-19, mRNA, LNP-S, PF, 100 mcg/0.5mL dose or 50 mcg/0.25mL dose 04/18/20 22 completed Not Available [facility] 09/09/2023 01:06:25 Influenza, split virus, quadrivalent, preservative 04/18/20 22 completed Not Available [facility] 09/09/2023 01:06:25 SARS-COV-2 (COVID-19) vaccine, UNSPECIFIED 04/21/20 23 completed Not Available [facility] 09/09/2023 01:06:25 influenza nasal, unspecified formulation 04/13/20 24 completed LEIGHTON ROCK [address] [place], [address], [facility] 09/15/2024 11:59:46 Respiratory syncytial virus (RSV) vaccine, unspecified 04/13/20 24 completed LEIGHTON ROCK [address] [place], [address], [facility] 09/15/2024 12:00:11 pneumococcal, unspecified formulation 09/27/19 13 completed Not Available [facility] 09/09/2023 01:06:25 Tdap 03/10/20 19 completed Not Available [facility] 09/09/2023 01:06:25 pneumococcal polysaccharide PPV23 03/10/20 19 completed Not Available [facility] 09/09/2023 01:06:25 Influenza, split virus, quadrivalent, preservative 04/14/20 18 completed Not Available [facility] 08/08/2019 02:46:31 Influenza, split virus, quadrivalent, PF 04/14/20 18 completed Not Available [facility] 08/08/2019 02:46:31 Influenza, split virus, quadrivalent, preservative 06/16/20 19 completed Not Available [facility] 09/09/2023 01:06:25 zoster, unspecified formulation 03/30/20 20 completed Not Available [facility] 09/09/2023 01:06:25 Influenza, split virus, quadrivalent, preservative 03/30/20 20 completed Not Available [facility] 09/09/2023 01:06:25 zoster, unspecified formulation 05/31/20 20 completed Not Available [facility] 09/09/2023 01:06:25 COVID-19, mRNA, LNP-S, PF, 100 mcg/0.5mL dose or 50 mcg/0.25mL dose 09/15/19 21 completed Not Available [facility] 09/09/2023 01:06:25 COVID-19, mRNA, LNP-S, PF, 100 mcg/0.5mL dose or 50 mcg/0.25mL dose 09/15/19 21 completed Not Available [facility] 09/09/2023 01:06:25 Past Encounters Encounter ID Performer Location Encounter Start Date Encounter Closed Date Diagnosis/Indication Diagnosis SNOMED-CT Code Diagnosis ICD10 Code Diagnosis Note [id number] [facility] [address] [facility] [place] [facility] [address] 01/29/2018 13:53:59 01/29/2018 15:37:25 Type 2 diabetes mellitus 27817477 E11.9 very well controlled despite weight gain pt already working on weight loss again Asthma 462510024 J45.90 9 typically on advair proair just if needed usually without sx Gastroesop hageal reflux disease 938585923 K21.9 quiet without medication Obesity 729047732 E66.9 had lost about 40 lb then gained 30 back, working on losing again. Essential hypertension 55654953 I10 has been off medication s for about a year has been stable Active or passive immunization 816729728 Z23 [id number] [facility] [address] [facility] [address] [place] [facility] [address] 04/14/2018 08:54:34 04/14/2018 16:28:05 Administration of influenza vaccine 62689479 Z23 [id number] [facility] [address] [facility] [address] [place] [address] 06/17/2018 13:39:01 06/17/2018 14:45:48 Asthma 599962262 J45.909 has been quiet Obesity 576208796 E66.9 had lost about 40 lb then gained 30 back, working on losing again. recheck 1 week Essential hypertension 28801106 I10 has been off medication s for about a year has been stable, but up today Pain of le ft hip joint 5196722462 68655 M25.552 end stage OA, needs to lose at least 10-20 pounds for surgery that she is scheduled for 07/21 safe doses of tylenol + aleve have been recommende d [id number] [facility] [address] [facility] [address] [place] [address] 06/24/2018 10:39:26 06/24/2018 11:46:33 Asthma 587694384 J45.909 has been quiet Obesity 512730695 E66.9 had lost about 40 lb then gained 30 back, working on losing again. recheck 1 week Essential hypertension 13084126 I10 has been off medication s for about a year has been stable, but up today Pain of le ft hip joint 4333673301 82260 M25.552 end stage OA, needs to lose at least 10-20 pounds for surgery that she is scheduled for 07/21 safe doses of tylenol + aleve have been recommende d Benign ess ential hypertension 0679845 I10 [id number] [facility] [address] [facility] [address] [place] [address] 07/01/2018 10:52:50 07/01/2018 11:46:17 Asthma 019909516 J45.909 has been quiet Obesity 137085065 E66.9 had lost about 40 lb then gained 30 back, working on losing again. has lost 6# on wb + naltrexone as contrave was not covered will stop naltrexone 1 week prior to surgery 07/14/18 f/u here 07/11/18 for preop Essential hypertension 17250239 I10 has been off medication s for about a year BP still mildly elevated even with lisinopril 10 mg. though has only been on it x 1 week. continue 10 mg recheck next week Pain of le ft hip joint 1241180175 21103 M25.552 has actually been a bit better this week [id number] [facility] [address] [facility],[place] [facility] [place] [address] 07/11/2018 10:12:11 07/11/2018 14:11:27 Asthma 573195266 J45.909 has been quiet Obesity 701204906 E66.9 has had 12# weight loss so far will continue wb/naltrex one Essential hypertension 23284749 I10 well controlled Pain of le ft hip joint 3088217958 65066 M25.552 has actually been a bit better this week [id number] [facility] [address] [facility] [address] [place] [address] 09/09/2018 15:54:47 09/09/2018 16:25:18 Asthma 336864156 J45.909 has been quiet Obesity 338545673 E66.9 would like to restart the meds again Hip pain 52070559 M25.55 9 actually pretty quiet Essential hypertension 90937267 I10 has stopped lisinopril , will restart [id number] Anupama [facility] [address] [facility],[place] [address] 09/19/2018 09:54:32 09/19/2018 11:03:00 Asthma 317907223 J45.909 has been quiet Gastroesop hageal reflux disease 926807676 K21.9 quiet without medication Obesity 323362861 E66.9 would like to restart the meds again Acute exac erbation of asthma 473966816 J45.901 Acute fron tonia sinusitis 73505807 J01.10 Candidiasis of vagina 72 048254 B37.3 [id number] Windy Qiu NP, [facility] [address] [place] [address], [place] [address] 10/22/2018 10:33:21 10/22/2018 11:31:00 Gastroesophageal reflux disease 692614114 K21.9 controlled w/diet Obesity 100659054 E66.9 on naltrexone , will D/C 1 week prior to surgery Type 2 aaron betes mellitus 65079741 E11.9 A1C 5.6 03/2018, await todays result Essential hypertension 54041138 I10 stable Dyspnea 037231895 R06.02 Pre-surger y evaluation 189101327 Z01.818 cardiology appt re: sob await labs done prior to appt today [facility] [address] [facility],[place] [address] 12/22/2018 09:40:14 12/22/2018 10:57:25 Pre-surgery evaluation 716508042 Z01.818 cleared for surgery Pain of le ft hip joint 1239319571 95189 M25.552 better with diclofenac will have to d/c 3 days prior to Asthma 356277181 J45.90 9 has been quiet Obesity 575514650 E66.9 at goal of BMI <40 prior to procedure Essential hypertension 27856154 I10 well controlled with lisinopril [id number] [facility] [address] [facility],[place] [address] 01/12/2019 10:16:04 01/12/2019 11:46:20 Urinary tract infectious disease 31501142 N39.0 Asthma 969688709 J45.90 9 has been quiet Arthritis of hip 1844817 6 M13.859 [id number] [facility] [address] [facility] [address] 03/09/2019 14:54:33 03/09/2019 16:20:58 Adult health examination 868583459 Z00.00 will schedule colonoscop y ob-vice president risk management likely completed last done 2 years ago, never had abnl pap Active or passive immunization 945145605 Z23 consider pneumovax Asthma 548821381 J45.90 9 has been quiet Gastroesop hageal reflux disease 339996906 K21.9 quiet without medication Type 2 aaron betes mellitus 10022035 E11.9 had been really well controlled more likely pre diabetic but we will get labs Essential hypertension 77771569 I10 stable off lisinopril [id number] [facility] [address] [facility] [address] 05/12/2019 16:07:33 05/12/2019 16:52:20 Asthma 639361485 J45.909 exacerbati on today Gastroesop hageal reflux disease 481011457 K21.9 quiet without medication Acute exac erbation of asthma 387424205 J45.901 Acute fron tonia sinusitis 46399694 J01.10 Candidiasis of vagina 72 046486 B37.3 [id number] [facility] [address] [facility] [address] 05/26/2019 09:56:46 05/26/2019 10:25:07 Asthma 825234945 J45.909 exacerbati on today Gastroesop hageal reflux disease 745538087 K21.9 quiet without medication Acute exac erbation of asthma 973283514 J45.901 Acute fron tonia sinusitis 43531860 J01.10 [id number] [facility] [address] [facility] [address] 06/24/2019 09:26:23 06/24/2019 10:20:33 Pre-surgery evaluation 160731553 Z01.818 cbc, cmp reviewed as normal a1c 5.5 very good blood sugar control ekg in october was normal had repeat ekg last week at [facility] which showed normal sinus rhythm relatively low risk for surgery, cleared for procedure Pain of le ft hip joint 9757765647 18394 M25.552 Asthma 929686602 J45.90 9 recently ill, but sx have nearly resolved Obesity 916224306 E66.9 at goal of BMI <40 prior to procedure Essential hypertension 75713316 I10 controlled without meds [id number] Anupama NAKITA [facility] [address] [facility],[place] [address] 08/03/2019 14:39:23 08/03/2019 15:09:56 Acute laryngitis 3605310 J04.0 Type 2 aaron betes mellitus 49651915 E11.9 had been really well controlled more likely pre diabetic but we will watch Gastroesop hageal reflux disease 735524325 K21.9 Essential hypertension 82209697 I10 controlled without meds Coffee sarah und vomiting 70050748 K92.0 [id number] Anupama Kevan [facility] [address] [facility],[place] [address] 10/14/2019 14:06:40 10/19/2019 10:39:31 Gastroesophageal reflux disease 063055711 K21.9 Impaired f asting glycemia 202277187 R73.01 continue to work on diet and exercise Essential hypertension 81839176 I10 mildly elevated per home reading, continue to work on diet and exercise Hyperlipidemia 79406657 E78.5 borderline with high HDL Asthma 966410229 J45.90 9 currently stable, will call if she develops her typical asthma exacerbati on, advised we will do telemed in this case if needed [id number] [place] [facility] [address] [facility],[place] [address] 02/15/2020 11:39:23 02/15/2020 12:14:39 Raised seborrheic keratosis 6974916462 95049 L82.1 Laryngopha ryngeal reflux 824804415 K21.9 Asthma 605958181 J45.90 9 Essential hypertension 78168919 I10 [id number] [place] [facility] [address] [facility] [address],[place] [address] 05/25/2020 13:29:32 05/25/2020 15:49:52 Asthma 541220786 J45.909 stable Adult heal th examination 569594640 Z00.00 had BW which looks good A1c looks great at 5.9 BP at home are much better at home so will continue to take at home [id number] [place] [facility] [address] [facility] [address],[place] [address] 06/21/2020 09:43:28 06/21/2020 10:19:54 Asthma 147822254 J45.909 stable Essential hypertension 85064620 I10 BP elevated still fluctuatin g up and down, no lower than 140/80 will increase her lisinopril to 10 mg and see her back in a month [id number] [place] [facility] [address] [facility] [address],[place] [address] 07/25/2020 09:26:40 07/25/2020 14:04:35 Essential hypertension 44518225 I10 BP is still elevated at home Gastroesop hageal reflux disease 565266643 K21.9 stable Obesity 881023884 E66.9 going to the gym 2 to 3 times per week and swims working on diet as well [id number] [place] [facility] [address] [facility] [address],[place] [address] 08/09/2020 10:12:42 08/09/2020 12:09:32 Fatty stool 99687744 R19.5 will start with workup to see if related to either pancreas, liver, or just her intestines will also due stool culture to discern if any relation to blood stool or fatty component to it pt agrees with this plan Melena 1589554 K92.1 the patient reports dark stool, very uncharacte ristic of her usually may be related to on going episodes of constipati on and diarrhea or could be an internal bleed that needs to be worked up Hematochezia 939830504 K 92.1 will follow up after bw and stool cultures come in Abdominal pain 35286349 R10.9 will aslo have US done on patient to see if any fluid build up, inflammati on or dysfunctio n [id number] [facility] [address] [facility] [address],[place] [address] 08/23/2020 10:08:24 08/23/2020 12:01:33 Cholelithiasis without obstruction 76972169 K80.20 will fu in end of august to see how she is feeling after surgery and see if symptoms have resolved Essential hypertension 01585213 I10 BP has finally shown some improvemen t with medication at home will fu in a month [id number] [facility] [address] [facility] [address],[place] [address] 09/19/2020 09:24:59 09/19/2020 10:06:42 Obesity 322504445 E66.9 working on going back to the gym to start swimming again Body mass index 40+ - severely obese 250235131 Z68.41 will send to specialist for discussion on diet going forward Essential hypertension 36300022 I10 BP fluctuatin g, will start on metoprolol with lisinopril and fu at her next appt History of cholecystectomy 952591901 Z90.49 surgery went well, healing is going well will continue to fu with her [id number] [facility] [address] [facility] [address],[place] [address] 12/05/2020 13:33:50 12/06/2020 08:41:11 Asthma 550081962 J45.909 stable, no interventi on Essential hypertension 65350212 I10 BP much improved from prior appts and ER fu the patient is tolerable to the medication , mild [id number] [facility] [facility] [address] [facility] [address],[place] [address] 02/01/2021 11:43:22 02/01/2021 14:50:49 Suspected COVID-19 820842677 Z03.89 already scheduled for a testwill call with results Cough 58304193 R05 will start on pred and abxwill also give cough suppressan t Muscle pain 70640737 M79 .10 muscles achescan use ibu and APAP Acute exac erbation of asthma 511887786 J45.901 will start on prednisone and z-james Asthma 900749922 J45.90 9 asthma exacerbati on due to URI (either due to COVID or other viral/bact erial infection) [id number] [place] [facility] [address] [facility] [address] [address] 03/07/2021 13:29:52 03/07/2021 14:06:24 Essential hypertension 05475093 I10 switch medication due to swelling of the LE and reduced HRwill add HTCZ Obesity 342120821 E66.3 will trial medication f for weight losshas fu with dietiticai n in sept Edema of l ower extremity 759308687 R60.0 will add HCTZ Fractured nasal bones 26 9375484 S02.2XXA plastic surgeon cleared her, stable fracture healing appropriat renato [id number] [facility] [facility] [address] [facility] [address],[place] [address] 04/07/2021 09:59:45 04/11/2021 13:43:53 Essential hypertension 65756980 I10 BP is excellentt olerates well Obesity 660682136 E66.3 doing well on the medication phentermin esome dry mouth, otherwise tolerable Asthma 146074017 J45.90 9 stable Impaired f asting glycemia 173828006 R73.01 will fu with 3 mo checks of her A1c [id number] [facility] [address] [facility] [address],[place] [address] 05/15/2021 14:58:27 05/15/2021 16:20:28 Essential hypertension 71360755 I10 the patient had a syncope episode due to hypotensiv e episodewil l decrease meds down too 20 mg of just lisinopril Acute inju ry of kidney 3645142042 1237484 N17.8 dehydrated and possibly due to the HTCZwill stop the HTCZ and metoprolol , will continue just the lisinopril Syncope 016176762 R55 resolved due to hypo-tensi on and dehydratio n [id number] [place] [facility] [address] [facility],[place] [address] 07/07/2021 09:19:04 07/07/2021 15:51:36 Essential hypertension 20274301 I10 will increase to only 30 mg to avoid hypotensio n again Obesity 711750589 E66.3 doing well on the medication phentermin esome dry mouth, otherwise tolerable Type 2 aaron betes mellitus 88380374 E11.9 A1c is 5.7 which is excellent [id number] [facility] [facility] [address] [facility],[place] [address] 07/26/2021 09:17:56 07/26/2021 15:52:36 Asthma 026647523 J45.21 stable Type 2 aaron betes mellitus 58159510 E11.9 A1c is 5.7 which is excellentc ontinue Body mass index 40+ - severely obese 192146151 Z68.41 will send to specialist for discussion on diet going forward Acute bronchitis 9670656 2 J20.8 will treat for acute bronchitis [id number] [facility] [address] [facility],[place] [address] 10/03/2021 09:58:19 10/03/2021 15:51:25 Essential hypertension 79330927 I10 increase lisinopril dosage to 40 mg Dyspnea 540661010 R06.02 has fu with pulmonolog y Asthma 083342559 J45.21 continue inhalers Obesity 133107356 E66.3 hold on the med for this [id number] [facility] [address] [facility] [address],[place] [address] 10/31/2021 10:48:08 11/01/2021 09:49:59 Dysuria 24044994 R30.0 will start on abx, and send urine out Acute urin jamel tract infection 398115066 N10 will start on bactrim BID for 7 dayscurren [place] [id number] [place] [facility] [address] [facility],[place] [address] 02/05/2022 14:29:31 02/05/2022 15:40:42 Fall 6945282 R29.6 will fu with imaging to r/o fractures Contusion of right lower leg 5774339110 8882294 S80.11XA will fu with XRs and US of the lower leg Rib pain 003125248 R07.8 1 will r/o rib fracture Pain of ri ght shoulder joint 6792082449 0219449 M25.511 will r/o fracturema y need MRI 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 discussed starting tumeric for it's anti-infla mmatory properties since it isn't currently painful Essential hypertension 41662548 I10 stable today Dizziness 501968184 R42 will have her fu with ENT surgeon who saw her after her nose Asthma 571420962 J45.21 continue inhalersad d the albuterol in again for the next two weeks with the worsening cough again Adult heal th examination 929818073 Z00.00 had BW which looks good A1c looks great at 5.9 BP at home are much better at home so will continue to take at home [id number] [place] [facility] [address] [facility],[place] [address] 04/23/2022 10:41:55 04/23/2022 11:46:12 Asthma 359947029 J45.21 continue inhalersad d the albuterol in again for the next two weeks with the worsening cough again Pain of ri ght lower leg 5762920091 85370 M79.661 will send to ortho for further eval Screening for osteoporosis 812106801 Z13.820 will set up with bone density Gynecologi c examination 94900313 Z01.419 will fu with new vice president risk management referral Essential hypertension 17975388 I10 stable today [id number] [place] [facility] [address] [facility],[place] [address] 07/27/2022 10:02:37 07/27/2022 13:47:26 Asthma 036671939 J45.21 continue inhalersad d the albuterol in again for the next two weeks with the worsening cough again Type 2 aaron betes mellitus 27404446 E11.9 A1c is 5.7 which is excellentc ontinue Body mass index 40+ - severely obese 872835326 Z68.41 will send to specialist for discussion on diet going forward Obesity 953646954 E66.3 will restart the phentermin e 15 mgwill start the topimax in three weeks for plateau Screening for osteoporosis 494075508 Z13.820 will set up with bone density again Acute bronchitis 2806759 2 J20.8 will treat for acute bronchitis as she is developing symptoms [id number] [place] [facility] [address] [facility],[place] [address] 11/09/2022 10:26:06 11/12/2022 08:17:59 Asthma 897975517 J45.21 stable today Essential hypertension 56531405 I10 stable today Gastroesop hageal reflux disease 196499097 K21.9 stable Overactive urinary bladder 181647296 N32.81 has a f/u with uro/vice president risk management Type 2 aaron betes mellitus 29635055 E11.9 will try setting up with mounjaro Edema of l ower extremity 252569081 R60.0 will do a course of lasix [id number] [place] [facility] [address] [facility],[place] [address] 02/05/2023 10:30:14 02/05/2023 12:27:15 Asthma 420734124 J45.21 stable today Essential hypertension 86737298 I10 stable today Gastroesop hageal reflux disease 384475480 K21.9 stable Impaired f asting glycemia 649499035 R73.01 working on diet Type 2 aaron betes mellitus 52433888 E11.9 will switch to mounjaro to ozempicHer A1c is excellent on the mounjaro due to the poor side effect profile Edema of l ower extremity 177946963 R60.0 will do a course of lasix [id number] [place] [facility] [address] [facility] [address],[place] [address] 04/30/2023 09:57:09 04/30/2023 10:56:07 Type 2 diabetes mellitus 93376367 E11.9 agreed to go up in the dose Asthma 129492445 J45.21 stable todayno issues Essential hypertension 17727416 I10 stable today [id number] [place] [facility] [address] [facility] [address],[place] [address] 07/26/2023 09:53:20 07/26/2023 14:20:09 Asthma 137854189 J45.21 acute asthma exacerbati onstart on z-james and prednisone Type 2 aaron betes mellitus 92373253 E11.9 agreed to go up in the dose Body mass index 40+ - severely obese 227717811 Z68.41 stable Acute kidney injury 1466 9001 N17.8 resolved Acute bronchitis 9736213 2 J20.8 will treat for acute bronchitis as she is developing symptoms [id number] [place] [facility] [address] [facility],[place] [address] 07/31/2023 08:00:34 07/31/2023 14:12:55 Type 2 diabetes mellitus 32815226 E11.9 agreed to go up in the dose Urinary incontinence 165 967560 N39.46 will f/u with urogyn, discussed with going ahead of Botox [id number] [place] [facility] [address] [facility] [address],[place] [address] 11/13/2023 14:16:15 11/13/2023 14:53:17 Type 2 diabetes mellitus 41608180 E11.9 agreed to go up in the dose to the 2 mg Essential hypertension 72822447 I10 stable today [id number] [place] [facility] [address] [facility] [address],[place] [address] 02/11/2024 11:12:52 02/12/2024 13:03:48 Depression screening 905063045 Z13.31 negative Type 2 aaron betes mellitus 22586380 E11.9 stable on the current dose Asthma 773127197 J45.21 stable At [facility] ed risk for falls 943816455 Z91.81 has been stablemod risk given hx of falls Osteopenia 081713708 M85 .80 will set up with new order [id number] [place] [facility] [address] [facility],[place] [address] 05/29/2024 11:04:26 05/29/2024 11:36:46 Asthma 870722327 J45.21 stable Essential hypertension 11343210 I10 stable today Type 2 aaron betes mellitus 89041415 E11.9 stable on the current dose Pleural effusion 5989578 8 J90 resolvedno recent pulm infections Screening mammography 24 855967 Z12.31 due for MM [id number] [facility] [facility] [address] [facility],[place] [address] 09/15/2024 11:40:17 09/15/2024 13:44:38 Type 2 diabetes mellitus 63423594 E11.9 stable on the current dose Fall 3552393 R29.6 stable, no recent falls Obesity 313805323 E66.3 will restart the phentermin e 15 mgwill start the topimax in three weeks for plateau Body mass index 40+ - severely obese 452590303 Z68.41 weight has been stable at 248 lbs, no major changeswil l increase activity Screening mammography of bilateral breasts 6766620482 96349 Z12.31 Health Concerns Section Related Observation LastModified by Organization Detai ls LastModified Time None Recorded Concern Status LastModified by Organization Details LastModified Time None Recorded Advance Directives Directive None Recorded Payers Encounter Date Sequence Insurance Name Policy Number Policy [place] Covered Member ID [place] Member ID Guarantor Name 07/31/2023 2 [facility] IN[facility]MNITY [facility] - [facility]LY [facility] [id number] Larry Contreras [id number] Bryn Contreras 07/31/2023 1 [place] [employer] Bryn Contreras [id number] Bryn Contreras 11/13/2023 2 [facility] IN[employer]MNITY [employer]AN - [employer] [id number] Larry Contreras [id number] Jillayne T Stendal 11/13/2023 1 [place] [employer] Jillayne T Stendal [id number] Jillayne T Diane 02/11/2024 2 [facility] IN[employer]MNITY [employer]AN - [employer] [id number] Larry Contreras [id number] Jillayne T Stendal 02/11/2024 1 [place] [facility] [place] Jillayne T Stendal [id number] Jillayne T Stendal 05/29/2024 2 [facility] IN[employer]MNITY [employer]AN - [employer] [id number] Larry Contreras [id number] Jillayne T Diane 05/29/2024 1 [place] [facility] [employer] [facility] Jillayne T Stendal [id number] Jillayne T Stendal 09/15/2024 2 [facility] IN[employer]MNITY PLAN - [employer] [id number] Larry Contreras [id number] Jillayne T Diane 09/15/2024 1 [place] [employer] Jillayne T Stendal [id number] Jillayne T Diane Notes Date Note Type Note Provider Name a ne Address Organization Details Recorded Time 4 text/html 3 mos f/u The patient [...] her bladder after discussion [place] [address] [place], [address], [facility] 07/31/2023 11:10:41 4 text/html f/u medication ICS: got the botox injections, doing well so far since she had it donesees Dr. Kirkholdtiera off on the bladder sling will increase the ozempic 2 mg to see more of a weight loss effectdoing well otherwise; no side effects [place] [address] [place], [address], [facility] 11/13/2023 14:39:30 4 text/html 3 mo f/u the patient is doing really welljust got back from a family vacation from [place], [place] the patient reports that she had [...] for mental health. otherwise [facility] [address] [place], [address], [facility] 02/11/2024 11:42:18 4 text/html [...] sob, ankle swelling, orthopnea, palpitations [place] [address] [place] [address], [phone], [facility] 05/29/2024 11:32:49 5 text/html 3 mos f/u asthma: stable T2DM: [...] eyes reveal normal exam (recent exam in Dec, no retinopathy or changes) Treatment plan going forward is continuing on medicationhas to hold the ozempic due to colonoscopy tomorrow fall: no recent falls obesity: stable, no weight changes needs screening MM, order submitted [facility] [address] [place] [address], [phone], [facility] 09/15/2024 12:05:51 OBGyn Episode No OBEpisode recorded.
== END 2024-09-21 11:44 | disposition home or self-care (01) ==
LOC: HO.MANLDS 11:43
PROVIDERS: Visit Provider Physician Assistant
DX: N10 Acute pyelonephritis (principal)
CPT/HCPCS: 81003

== ENCOUNTER 2024-12-01 09:14 | Outpatient (REF) | payer MEDICARE, OTHER, SELFPAY ==
--- OUTSIDE RECORDS SUMMARY | 2024-12-01 09:41 | XMS_ITS | Data Portability ---
Author Organization [facility] Home Service Address [address] [place] [address] Assessment Encounter Date Assessment Date Assessment LastModified by Organization Details LastModified Time 07/31/2023 07/31/2023 Patient agreed and verbally consents to this audio and video Telehealth appt via a secure platform [email or web address] Not available 07/31/2023 11:05:05 Plan of Treatment Reminders Order Date Submit Date Provider Last Modified By Organization Details Last Modified Time Details Appointments FOLLOW UP 15 2024 04:15P LEIGHTON CHOI Not available Not available Not available Lab CMP, serum or plasma 2023 [facility], [address] [place] [address], [id number], 05/29/2024 11:48:07 lipid panel, blood 2023 024 [facility], [address] [place] [address], [address], 05/29/2024 11:48:07 CBC w/ auto diff 2023 024 [facility], [address] [place] [address], [address], 05/29/2024 11:48:07 hemoglobi n A1c, QN, blood 2023 024 [facility], [address] [place] [address], [address], 05/29/2024 11:48:07 CMP, serum or plasma 2023 024 [facility], [address] [place] [address], [id number], 02/19/2024 11:26:48 lipid panel, blood 2023 024 [facility], [address] [place] [address], [address], 02/19/2024 11:26:49 CBC w/ auto diff 2023 024 [facility], [address] [place] [address], [id number], 02/11/2024 11:39:29 hemoglobi n A1c, QN, blood 2023 024 [facility], [address] [place] [address], [address], 02/19/2024 11:26:48 hemoglobi n A1c, QN, blood 2023 024 [facility], [address] [place] [address], [address], 08/27/2024 12:45:46 CMP, serum or plasma 2023 024 [facility], [address] [place] [address], [address], 05/18/2024 11:38:06 lipid panel, blood 2023 025 [facility], [address] [place] [address], [address], 02/19/2024 11:26:49 CMP, serum or plasma 2023 025 [facility], [address] [place] [address], [address], 05/18/2024 11:38:06 hemoglobi n A1c, QN, blood 2024 025 [facility], [address] [facility], [place], [address], 09/15/2024 12:04:19 Referral None recorded. Procedures None recorded. Surgeries None recorded. Imaging MAMMO, screening , digital, bilateral 2024 025 [email or web address], [address] [place] [address], [address], 09/29/2024 08:17:38 MAMMO, screening , digital, bilateral 2023 024 hrubner Not available 06/12/2024 08:32:02 bone density 2023 024 [email or web address] Not available 02/25/2024 08:19:59 Medication Orders fluticaso ne propionat e 110 mcg/actua tion HFA aerosol inhaler 2023 024 [facility] [employer] [facility][id number], [address], [place], [id number], 05/29/2024 11:21:31 Ozempic 2 mg/dose (8 mg/3 mL) subcutane ous pen injector 2023 024 [facility] [employer] [facility][id number], [address], [place], [id number], 11/13/2023 14:30:56 propranol ol ER 60 mg capsule,2 4 hr,extend ed release 2023 024 [facility] [employer] [facility] #90067, [address], [place], [id number], 11/13/2023 14:38:01 Ozempic 1 mg/dose (4 mg/3 mL) subcutane ous pen injector 2023 024 [facility] [employer] [facility]72087, [address], [place], [id number], 11/13/2023 14:30:49 Patient TargetsNo targets recorded. Patient InstructionsNo instructions recorded. Reason for Referral None Reported. Results Created Date Observation Date Name Description Value Unit Range Abnormal Flag Note LastModifiedBy Organization Detail LastModifiedTime 11/28/1911/27/2024 MAMMO , scree cristian, digit al, bilat eral No observ ation record ed. [facility] - Callback Orders Only [address] [place], [address], 11/27/2024 14:53:25 Result Notes None recorded. Problems Name Problem SNOMED Code Status Onset Date Resolution Date Notes Provider Name and Address Organization Details Recorded Time Impaired fasting glycemia 159516306 Active 2018 Not Available [facility] 2 14:33:26 Dysuria 43711843 Active 2021 LEIGHTON ROCK [address] [place], [address], [facility] 2 11:22:34 Fall Active 2021 LEIGHTON ROCK [address] [place], [address], [facility] 2 14:43:53 Rib pain 662594971 Active 2021 LEIGHTON ROCK [address] [place], [address], [facility] 2 14:44:21 Pain of right shoulder joint 5350103836 8667330 Active 2021 LEIGHTON ROCK [address] [place], [address], [facility] 2 14:44:30 Contusio n of right lower leg 5282645580 9457411 Active 2021 LEIGHTON ROCK [address] [place], [address], [facility] 2 14:44:41 Temporom andibula r joint-pa in-dysfu nction syndrome 057746340 Active 2021 LEIGHTON ROCK [address] [place], [address], [facility] 2 14:47:55 Dizzines s 482791332 Active 2021 LEIGHTON ROCK [address] [place], [address], [facility] 2 14:50:07 COVID-19 659633996 Active 2021 [facility] 10:45:23 Pain of right lower leg 7324620286 73444 Active 2021 LEIGHTON ROCK [address] [place], [address], [facility] 2 11:05:06 Mass of lower limb 520684759 Active 2021 LEIGHTON ROCK [address] [place], [address], [facility] 2 16:47:25 Guerra laminar sclerosi s 109931725 Active 2021 LEIGHTON ROCK [address] [place], [address], [facility] 2 10:21:50 Pleural effusion 81766708 Active 2022 LEIGHTON ROCK [address] [place], [address], [facility] 3 16:16:16 Overacti ve urinary bladder 920633435 Active 2022 LEIGHTON ROCK [address] [place] [address], [address], [facility] 3 10:39:17 Type 2 diabetes mellitus 90216888 Active 2022 LEIGHTON ROCK [address] [place] [address], [address], [facility] 3 10:42:28 Edema of lower extremit y 726210521 Active 2022 LEIGHTON ROCK [address] [place], [address], [facility] 3 10:44:49 Urinary incontin ence 403759851 Active 2023 LEIGHTON ROCK [address] [place], [address], [facility] 4 11:05:14 Osteopen ia 253419544 Active 2023 LEIGHTON ROCK [address] [place], [address], [facility] 4 11:33:42 Acute bronchit is 73453184 Active 2024 LEIGHTON ROCK [address] [place], [address], [facility] 5 12:34:47 Essentia l hyperten geeta 00369202 Active 2017 Not Available [facility] 2 14:33:25 Hypergly cemia 23217796 Completed 201710/22/2018 Windy Qiu NP, S [address] [place], [address], [facility] 9 05:36:52 Obesity 106122244 Active 2017 Not Available [facility] 2 14:33:25 Gastroes ophageal reflux disease 532463749 Active 2017 Not Available [facility] 2 14:33:26 Internal hemorrho ids 18741600 Active 2017 Not Available [facility] 2 14:33:26 Polyp of colon 22261576 Active 2017 2013 Not Available [facility] 2 14:33:26 Reactive airways dysfunct ion syndrome 216321335 Completed 201701/28/2018 [facility] 8 14:36:40 Asthma 676991902 Active 2017 reactive airway syndrome Not Available [facility] 14:33:26 Problem Notes None recorded. Procedures Surgical History Date Name Laterality Status Provider Name and Address Organization Details Recorded Time 025 colonoscopy completed LEIGHTON ROCK [address] [place], [address], [facility] 09/15/2024 12:03:42 021 cholecystectomy completed ELIGHTON ROCK [address] [place], [address], [facility] 09/19/2020 09:36:58 020 Colonoscopy completed [facility] 05/25/2020 13:33:22 019 Joint Replacement completed [facility] 05/25/2020 13:33:22 019 Most Recent Mammogram completed [facility] 03/09/2019 08:31:30 019 total replacement of left hip joint completed October NAKITA Mathur [address] [place], [address], [facility] 01/12/2019 10:46:18 019 Joint Replacement completed [facility] 05/25/2020 13:33:22 016 Date of Last Pap Smear completed [facility] 03/09/2019 08:31:00 013 Colonoscopy completed [facility] 03/09/2019 08:32:53 987 Caesarean Section completed [facility] 05/25/2020 13:33:22 984 Caesarean Section completed [facility] 05/25/2020 13:33:22 981 Caesarean Section completed [facility] 05/25/2020 13:33:22 979 Laparoscopy completed Yue Alanis [facility] 10/21/2018 16:02:01 Caesarean Section completed Windy Qiu NP, S [address] [place], [address], [facility] 10/22/2018 10:45:44 Imaging Results Imaging Date Name Status LastModified by Organiz ation Details LastModified Time 11/27/2024 MAMMO, screening, digital, bilateral completed [email or web address] [facility] - Callback Orders Only [address] [place], [address], 11/27/2024 14:53:25 Procedure Notes None recorded. Medical Equipment None Reported. Allergies Allergen ID Allergen Name Allergen Category Reaction Reaction Severity Criticality Documentation Date Start Date Code Code System Note Provider Name and Address Organization Details Recorded Time 1836 Compazine medicatio n seizure Not available Not available 01/29/2018 55550 6 RxNorm Yue lentz [facility] 8 14:00:45 2953 iodine medicatio n Not available Not available Not available 10/21/2018 5933 RxNorm Yue lentz [facility] 9 16:01:23 7051 Mounjaro medicatio n swelling severe Not available 02/05/2023 28751 34 RxNorm LEIGHTON ROCK [address] [place], [address], [facility] 3 11:20:24 Medications Name Sig Start Date [...] ORAL ROUTE ONCE DAILY FOR 4 DAYS active Not Available Not Available No t Available fluconazo le 150 mg tablet Take 1 tablet every 72 hours by oral route for 2 days. 06/24 completed Not Available Not Available Not Available sulfameth oxazole 400 mg-trimet hoprim 80 mg tablet TAKE 1 TABLET BY MOUTH TWICE DAILY FOR 7 DAYS active Not Available Not Available No t Available naltrexon e 50 mg tablet start 1/2 tab qd x 7 days, then increase to 1 tab qd 12/22 completed Not Available Not Available Not Available phenazopy ridine 200 mg tablet TAKE 1 TABLET BY MOUTH THREE TIMES DAILY AFTER MEALS FOR 7 DAYS NEEDED FOR URINARY DISCOMFO RT WITH FOOD active Not Available Not Available No t Available lisinopri l 20 mg tablet TAKE [...] MOUTH EVERY 12 HOURS FOR 7 DAYS active Not Available Not Available No t Available omeprazol e 40 mg capsule,d elayed [...] Not Available No t Available lisinopri l 20 mg-hydroc hlorothia zide 25 [...] e 110 mcg/actua tion HFA aerosol inhaler INHALE 1 PUFF BY MOUTH TWICE DAILY DIRECTED active Not Available Not Available No t Available amoxicill in 875 mg-potass ium clavulana te [...] Relief 50 mcg/actua tion nasal spray,kadeem pension [place] 1 spray every day by intranas al [...] Updated DateTime 4 163.2 cm 44.5 kg/m2 991938. 69 g 68 /min 18 /min 100 % 100 % 132 mm[Hg] 82 mm[Hg] Linden Ruffin [facility] 4 14:19:57 Date Recorded Body height Body mass index (BMI) Body weight Heart rate Oxygen saturation Oxygen saturation in Arterial blood by Pulse oximetry Systolic blood pressure Diastolic blood pressure Provider Name and Address Organization Details Last Updated DateTime 4 163.83 cm 41.1 kg/m2 815607. 95 g 76 /min 98 % 98 % 128 mm[Hg] 70 mm[Hg] Linden Ruffin [facility] 4 11:17:37 Date Recorded Body height Body mass index (BMI) Body weight Heart rate Oxygen saturation Oxygen saturation in Arterial blood by Pulse oximetry Systolic blood pressure Diastolic blood pressure Provider Name and Address Organization Details Last Updated DateTime 4 163.83 cm 41.9 kg/m2 090791. 19 g 77 /min 98 % 98 % 132 mm[Hg] 86 mm[Hg] Bri Melgar [facility] 4 11:11:21 Date Recorded Body height Body mass index (BMI) Body weight Heart rate Oxygen saturation Oxygen saturation in Arterial blood by Pulse oximetry Systolic blood pressure Diastolic blood pressure Provider Name and Address Organization Details Last Updated DateTime 5 163.83 cm 42 kg/m2 654274. 06 g 85 /min 94 % 94 % 132 mm[Hg] 86 mm[Hg] Bri Melgar [facility] 5 11:47:16 Social History Question Answer Notes LastModified by Organizat ion Details LastModified Time Tobacco Smoking Status Never Smoker Not Available [facility] 05/24/2020 03:36:23 What Was The Date Of Your Most Recent Tobacco Screening? 09/15/2024 [email or web address] Information not available 09/15/2024 Sex: Unknown Functional Status Question Answer Note LastModified by Organization D etails LastModified Time Do you or have you ever used any other forms of tobacco or nicotine? No [email or web address] Information not available 11/09/2022 Mental Status None recorded. Family History Relationship [...] quadrivalent, preservative 04/14/20 21 completed Not Available [facility] 09/09/2023 01:06:25 COVID-19, mRNA, LNP-S, PF, 100 mcg/0.5mL dose or 50 mcg/0.25mL dose 05/23/20 21 completed Not Available [facility] 09/09/2023 01:06:25 COVID-19, mRNA, LNP-S, PF, 30 mcg/0.3 mL dose 10/19/19 22 completed Not Available [facility] 09/09/2023 01:06:25 COVID-19, mRNA, LNP-S, PF, 100 mcg/0.5mL dose or 50 mcg/0.25mL dose 04/18/20 22 completed Not Available [facility] 09/09/2023 01:06:25 Influenza, split virus, quadrivalent, preservative 04/18/20 22 completed Not Available [facility] 09/09/2023 01:06:25 SARS-COV-2 (COVID-19) vaccine, UNSPECIFIED 04/21/20 23 completed Not Available [facility] 09/09/2023 01:06:25 influenza nasal, unspecified formulation 04/13/20 24 completed LEIGHTON ROCK [address] [place] [address], [address], [facility] 09/15/2024 11:59:46 Respiratory syncytial virus (RSV) vaccine, unspecified 04/13/20 24 completed LEIGHTON ROCK [address] [place] [address], [address], [facility] 09/15/2024 12:00:11 pneumococcal, unspecified formulation 09/27/19 13 completed Not Available [facility] 09/09/2023 01:06:25 Tdap 03/10/20 19 completed Not Available [facility] 09/09/2023 01:06:25 pneumococcal polysaccharide PPV23 03/10/20 19 completed Not Available [facility] 09/09/2023 01:06:25 Influenza, split virus, quadrivalent, preservative 04/14/20 18 completed Not Available [facility] 08/08/2019 02:46:31 Influenza, split virus, quadrivalent, PF 04/14/20 18 completed Not Available [facility] 08/08/2019 02:46:31 Influenza, split virus, quadrivalent, preservative 06/16/20 19 completed Not Available [facility] 09/09/2023 01:06:25 zoster, unspecified formulation 03/30/20 20 completed Not Available [facility] 09/09/2023 01:06:25 Influenza, split virus, quadrivalent, preservative 03/30/20 20 completed Not Available [facility] 09/09/2023 01:06:25 zoster, unspecified formulation 05/31/20 20 completed Not Available [facility] 09/09/2023 01:06:25 COVID-19, mRNA, LNP-S, PF, 100 mcg/0.5mL dose or 50 mcg/0.25mL dose 09/15/19 21 completed Not Available [facility] 09/09/2023 01:06:25 COVID-19, mRNA, LNP-S, PF, 100 mcg/0.5mL dose or 50 mcg/0.25mL dose 09/15/19 21 completed Not Available [facility] 09/09/2023 01:06:25 Past Encounters Encounter ID Performer Location Encounter Start Date Encounter Closed Date Diagnosis/Indication Diagnosis SNOMED-CT Code Diagnosis ICD10 Code Diagnosis Note [id number] Rojas Rogel DO [facility] [address] [facility],[place] [address] 01/29/2018 13:53:59 01/29/2018 15:37:25 Type 2 diabetes mellitus 97881298 E11.9 very well controlled despite weight gain pt already working on weight loss again Asthma 454086561 J45.90 9 typically on advair proair just if needed usually without sx Gastroesop hageal reflux disease 073295650 K21.9 quiet without medication Obesity 656755110 E66.9 had lost about 40 lb then gained 30 back, working on losing again. Essential hypertension 57658231 I10 has been off medication s for about a year has been stable Active or passive immunization 627329506 Z23 [id number] Rojas Rogel DO [facility] [address] [facility],[place] [address] 04/14/2018 08:54:34 04/14/2018 16:28:05 Administration of influenza vaccine 57385051 Z23 [id number] [facility] [address] [facility] [place] [facility] [address] 06/17/2018 13:39:01 06/17/2018 14:45:48 Asthma 266620882 J45.909 has been quiet Obesity 498847731 E66.9 had lost about 40 lb then gained 30 back, working on losing again. recheck 1 week Essential hypertension 24961000 I10 has been off medication s for about a year has been stable, but up today Pain of le ft hip joint 1045077983 50471 M25.552 end stage OA, needs to lose at least 10-20 pounds for surgery that she is scheduled for 07/21 safe doses of tylenol + aleve have been recommende d [id number] [facility] [address] [facility] [address] [place] [address] 06/24/2018 10:39:26 06/24/2018 11:46:33 Asthma 519367927 J45.909 has been quiet Obesity 713852188 E66.9 had lost about 40 lb then gained 30 back, working on losing again. recheck 1 week Essential hypertension 35967596 I10 has been off medication s for about a year has been stable, but up today Pain of le ft hip joint 0022842975 92327 M25.552 end stage OA, needs to lose at least 10-20 pounds for surgery that she is scheduled for 07/21 safe doses of tylenol + aleve have been recommende d Benign ess ential hypertension 7362448 I10 [id number] [facility] [address] [facility] [address] [place] [facility] [address] 07/01/2018 10:52:50 07/01/2018 11:46:17 Asthma 183043909 J45.909 has been quiet Obesity 353345048 E66.9 had lost about 40 lb then gained 30 back, working on losing again. has lost 6# on wb + naltrexone as contrave was not covered will stop naltrexone 1 week prior to surgery 07/14/18 f/u here 07/11/18 for preop Essential hypertension 34426141 I10 has been off medication s for about a year BP still mildly elevated even with lisinopril 10 mg. though has only been on it x 1 week. continue 10 mg recheck next week Pain of le ft hip joint 8486566714 31301 M25.552 has actually been a bit better this week [id number] [facility] [address] [facility] [address] 07/11/2018 10:12:11 07/11/2018 14:11:27 Asthma 339774279 J45.909 has been quiet Obesity 472231685 E66.9 has had 12# weight loss so far will continue wb/naltrex one Essential hypertension 92374731 I10 well controlled Pain of le ft hip joint 0754496719 57937 M25.552 has actually been a bit better this week [id number] [facility] [address] [facility] [address] 09/09/2018 15:54:47 09/09/2018 16:25:18 Asthma 302685449 J45.909 has been quiet Obesity 108303409 E66.9 would like to restart the meds again Pain of hip region 37924 002 M25.559 actually pretty quiet Essential hypertension 56003216 I10 has stopped lisinopril , will restart [id number] [facility] [address] [facility] [address] 09/19/2018 09:54:32 09/19/2018 11:03:00 Asthma 950529923 J45.909 has been quiet Gastroesop hageal reflux disease 507000297 K21.9 quiet without medication Obesity 278122588 E66.9 would like to restart the meds again Acute exac erbation of asthma 670996386 J45.901 Acute fron tonia sinusitis 62739706 J01.10 Candidiasis of vagina 72 725579 B37.[id number] [facility] [address] [facility] [address] 10/22/2018 10:33:21 10/22/2018 11:31:00 Gastroesophageal reflux disease 517614771 K21.9 controlled w/diet Obesity 921513941 E66.9 on naltrexone , will D/C 1 week prior to surgery Type 2 aaron betes mellitus 72560671 E11.9 A1C 5.6 03/2018, await todays result Essential hypertension 53440049 I10 stable Dyspnea 789633104 R06.02 Pre-surger y evaluation 483015599 Z01.818 cardiology appt 1st re: sob await labs done prior to appt today Rojas Rogel [facility] [address] [facility],[place] [address] 12/22/2018 09:40:14 12/22/2018 10:57:25 Pre-surgery evaluation 954620396 Z01.818 cleared for surgery Pain of le ft hip joint 6850482368 52244 M25.552 better with diclofenac will have to d/c 3 days prior to Asthma 515505650 J45.90 9 has been quiet Obesity 549568058 E66.9 at goal of BMI <40 prior to procedure Essential hypertension 29905433 I10 well controlled with lisinopril [id number] [facility] [address] [facility],[place] [address] 01/12/2019 10:16:04 01/12/2019 11:46:20 Urinary tract infectious disease 15080875 N39.0 Asthma 845160446 J45.90 9 has been quiet Arthritis of hip 1292053 [id number] [facility] [address] [facility],[place] [address] 03/09/2019 14:54:33 03/09/2019 16:20:58 Adult health examination 714977367 Z00.00 will schedule colonoscop y ob-telephone repairer likely completed last done 2 years ago, never had abnl pap Active or passive immunization 941287965 Z23 consider pneumovax Asthma 452613201 J45.90 9 has been quiet Gastroesop hageal reflux disease 158619035 K21.9 quiet without medication Type 2 aaron betes mellitus 59882690 E11.9 had been really well controlled more likely pre diabetic but we will get labs Essential hypertension 05302537 I10 stable off lisinopril [id number] [facility] [address] [facility],[place] [address] 05/12/2019 16:07:33 05/12/2019 16:52:20 Asthma 357576374 J45.909 exacerbati on today Gastroesop hageal reflux disease 721543606 K21.9 quiet without medication Acute exac erbation of asthma 128498354 J45.901 Acute fron tonia sinusitis 07278954 J01.10 Candidiasis of vagina 72 093480 B37.[id number] [facility] [address] [facility],[place] [address] 05/26/2019 09:56:46 05/26/2019 10:25:07 Asthma 989202373 J45.909 exacerbati on today Gastroesop hageal reflux disease 955516140 K21.9 quiet without medication Acute exac erbation of asthma 730853596 J45.901 Acute fron tonia sinusitis 68050556 J01.[id number] [facility] [address] [facility],[place] [address] 06/24/2019 09:26:23 06/24/2019 10:20:33 Pre-surgery evaluation 726764850 Z01.818 cbc, cmp reviewed as normal a1c 5.5 very good blood sugar control ekg in october was normal had repeat ekg last week at [facility] which showed normal sinus rhythm relatively low risk for surgery, cleared for procedure Pain of le ft hip joint [id number] 50402 M25.552 Asthma 225008968 J45.90 9 recently ill, but sx have nearly resolved Obesity 339974713 E66.9 at goal of BMI <40 prior to procedure Essential hypertension 38755647 I10 controlled without meds [id number] [facility] Internal Medicine 179 [facility],[place] [address] 08/03/2019 14:39:23 08/03/2019 15:09:56 Acute laryngitis 8999916 J04.0 Type 2 aaron betes mellitus 14143683 E11.9 had been really well controlled more likely pre diabetic but we will watch Gastroesop hageal reflux disease 725914483 K21.9 Essential hypertension 59187006 I10 controlled without meds Coffee sarah und vomiting 43645736 K92.[id number] [facility] Internal Medicine 179 [facility] [address] [address] 10/14/2019 14:06:40 10/19/2019 10:39:31 Gastroesophageal reflux disease 684500670 K21.9 Impaired f asting glycemia 736651996 R73.01 continue to work on diet and exercise Essential hypertension 49234654 I10 mildly elevated per home reading, continue to work on diet and exercise Hyperlipidemia 39277984 E78.5 borderline with high HDL Asthma 112883894 J45.90 9 currently stable, will call if she develops her typical asthma exacerbati on, advised we will do telemed in this case if needed [id number] Rojas Rogel DO [facility] Internal Medicine [address] [facility],[place] [address] 02/15/2020 11:39:23 02/15/2020 12:14:39 Raised seborrheic keratosis 2521422917 14680 L82.1 Laryngopha ryngeal reflux 943968535 K21.9 Asthma 019780936 J45.90 9 Essential hypertension 85549216 I10 [id number] Rojas Rogel DO [facility] Internal Medicine [address] [facility] [address] [address] 05/25/2020 13:29:32 05/25/2020 15:49:52 Asthma 254123014 J45.909 stable Adult heal th examination 703143793 Z00.00 had BW which looks good A1c looks great at 5.9 BP at home are much better at home so will continue to take at home [id number] Rojas Rogel DO [facility] Internal Medicine [address] [facility] [address] [address] 06/21/2020 09:43:28 06/21/2020 10:19:54 Asthma 259001518 J45.909 stable Essential hypertension 94348120 I10 BP elevated still fluctuatin g up and down, no lower than 140/80 will increase her lisinopril to 10 mg and see her back in a month [id number] [facility] Internal Medicine [address] [facility] [address] [address] 07/25/2020 09:26:40 07/25/2020 14:04:35 Essential hypertension 53154121 I10 BP is still elevated at home Gastroesop hageal reflux disease 238589900 K21.9 stable Obesity 078072106 E66.9 going to the gym 2 to 3 times per week and swims working on diet as well [id number] Rojas Rogel DO [facility] Internal Medicine [address] [facility] [address] [address] 08/09/2020 10:12:42 08/09/2020 12:09:32 Fatty stool 63125618 R19.5 will start with workup to see if related to either pancreas, liver, or just her intestines will also due stool culture to discern if any relation to blood stool or fatty component to it pt agrees with this plan Melena 8032199 K92.1 the patient reports dark stool, very uncharacte ristic of her usually may be related to on going episodes of constipati on and diarrhea or could be an internal bleed that needs to be worked up Hematochezia 239393194 K 92.1 will follow up after bw and stool cultures come in Abdominal pain 02761164 R10.9 will aslo have US done on patient to see if any fluid build up, inflammati on or dysfunctio [place] [id number] [facility] Internal Medicine [address] [facility] [address] [address] 08/23/2020 10:08:24 08/23/2020 12:01:33 Cholelithiasis without obstruction 83349778 K80.20 will fu in end of august to see how she is feeling after surgery and see if symptoms have resolved Essential hypertension 60034849 I10 BP has finally shown some improvemen t with medication at home will fu in a month [id number] Rojas Rogel DO [facility] Internal Medicine [address] [facility] [address] [address] 09/19/2020 09:24:59 09/19/2020 10:06:42 Obesity 734437945 E66.9 working on going back to the gym to start swimming again Body mass index 40+ - severely obese 871833057 Z68.41 will send to specialist for discussion on diet going forward Essential hypertension 26565158 I10 BP fluctuatin g, will start on metoprolol with lisinopril and fu at her next appt History of cholecystectomy 107026347 Z90.49 surgery went well, healing is going well will continue to fu with her [id number] Rojas Rogel DO [facility] Internal Medicine [address] [facility] [address] [address] 12/05/2020 13:33:50 12/06/2020 08:41:11 Asthma 678180105 J45.909 stable, no interventi on Essential hypertension 91247923 I10 BP much improved from prior appts and ER fu the patient is tolerable to the medication , mild [id number] Rojas Rogel DO [facility] Internal Medicine [address] [facility] [address] [address] 02/01/2021 11:43:22 02/01/2021 14:50:49 Suspected COVID-19 007170136 Z03.89 already scheduled for a testwill call with results Cough 15540883 R05 will start on pred and abxwill also give cough suppressan t Muscle pain 99901419 M79 .10 muscles achescan use ibu and APAP Acute exac erbation of asthma 784196213 J45.901 will start on prednisone and z-james Asthma 716743982 J45.90 9 asthma exacerbati on due to URI (either due to COVID or other viral/bact erial infection) [id number] Rojas Rogel DO [facility] Internal Medicine [address] [facility] [address],[place] [address] 03/07/2021 13:29:52 03/07/2021 14:06:24 Essential hypertension 51588109 I10 switch medication due to swelling of the LE and reduced HRwill add HTCZ Obesity 459167693 E66.3 will trial medication f for weight losshas fu with dietiticai n in sept Edema of l ower extremity 121692944 R60.0 will add HCTZ Fractured nasal bones 26 2405941 S02.2XXA plastic surgeon cleared her, stable fracture healing appropriat renato [address] [facility] Internal Medicine 179 [facility] [address] 04/07/2021 09:59:45 04/11/2021 13:43:53 Essential hypertension 29864233 I10 BP is excellentt olerates well Obesity 406275718 E66.3 doing well on the medication phentermin esome dry mouth, otherwise tolerable Asthma 738578130 J45.90 9 stable Impaired f asting glycemia 561250150 R73.01 will fu with 3 mo checks of her A1c [id number] [facility] Internal Medicine 179 [facility] [address] 05/15/2021 14:58:27 05/15/2021 16:20:28 Essential hypertension 84040200 I10 the patient had a syncope episode due to hypotensiv e episodewil l decrease meds down too 20 mg of just lisinopril Acute inju ry of kidney 0748689206 3024337 N17.8 dehydrated and possibly due to the HTCZwill stop the HTCZ and metoprolol , will continue just the lisinopril Syncope 043346355 R55 resolved due to hypo-tensi [place] [id number] [facility] Internal Medicine 179 [facility] [address] 07/07/2021 09:19:04 07/07/2021 15:51:36 Essential hypertension 44671015 I10 will increase to only 30 mg to avoid hypotensio n again Obesity 826977851 E66.3 doing well on the medication phentermin esome dry mouth, otherwise tolerable Type 2 aaron betes mellitus 62300877 E11.9 A1c is 5.7 which is excellent [address] [facility] Internal Medicine 179 [facility] [facility] [address] 07/26/2021 09:17:56 07/26/2021 15:52:36 Asthma 025043987 J45.21 stable Type 2 aaron betes mellitus 92087274 E11.9 A1c is 5.7 which is excellentc ontinue Body mass index 40+ - severely obese 364550080 Z68.41 will send to specialist for discussion on diet going forward Acute bronchitis 9205130 2 J20.8 will treat for acute bronchitis [id number] [facility] Internal Medicine 179 [facility] [address] 10/03/2021 09:58:19 10/03/2021 15:51:25 Essential hypertension 37356370 I10 increase lisinopril dosage to 40 mg Dyspnea 122140013 R06.02 has fu with pulmonolog y Asthma 269820904 J45.21 continue inhalers Obesity 299617224 E66.3 hold on the med for this [id number] [facility] Internal Medicine [address] [facility] [address] [address] 10/31/2021 10:48:08 11/01/2021 09:49:59 Dysuria 51522616 R30.0 will start on abx, and send urine out Acute urin jamel tract infection 354701080 N10 will start on bactrim BID for 7 [place] [id number] 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 Internal Medicine 179 [facility], [place] [address] 04/23/2022 10:41:55 04/23/2022 11:46:12 Asthma 329686331 J45.21 continue inhalersad d the albuterol in again for the next two weeks with the worsening cough again Pain of ri ght lower leg 7945956010 73179 M79.661 will send to ortho for further eval Screening for osteoporosis 910672945 Z13.820 will set up with bone density Gynecologi c examination 98463656 Z01.419 will fu with new telephone repairer referral Essential hypertension 49528435 I10 stable today [id number] [facility] Internal Medicine 179 [facility],[place] [address] 07/27/2022 10:02:37 07/27/2022 13:47:26 Asthma 864385801 J45.21 continue inhalersad d the albuterol in again for the next two weeks with the worsening cough again Type 2 aaron betes mellitus 96201737 E11.9 A1c is 5.7 which is excellentc ontinue Body mass index 40+ - severely obese 748177395 Z68.41 will send to specialist for discussion on diet going forward Obesity 326656311 E66.3 will restart the phentermin e 15 mgwill start the topimax in three weeks for plateau Screening for osteoporosis 523101556 Z13.820 will set up with bone density again Acute bronchitis 5686360 2 J20.8 will treat for acute bronchitis as she is developing symptoms [id number] [facility] Internal Medicine [address] [facility] [address],[place] [address] 11/09/2022 10:26:06 11/12/2022 08:17:59 Asthma 062793174 J45.21 stable today Essential hypertension 11896553 I10 stable today Gastroesop hageal reflux disease 451430510 K21.9 stable Overactive urinary bladder 413480169 N32.81 has a f/u with uro/telephone repairer Type 2 aaron betes mellitus 08363552 E11.9 will try setting up with mounjaro Edema of l ower extremity 802937720 R60.0 will do a course of lasix [id number] [facility] Internal Medicine [address] [facility],[place] [address] 02/05/2023 10:30:14 02/05/2023 12:27:15 Asthma 251501667 J45.21 stable today Essential hypertension 06406996 I10 stable today Gastroesop hageal reflux disease 551409678 K21.9 stable Impaired f asting glycemia 253338521 R73.01 working on diet Type 2 aaron betes mellitus 34941960 E11.9 will switch to mounjaro to ozempicHer A1c is excellent on the mounjaro due to the poor side effect profile Edema of l ower extremity 693046310 R60.0 will do a course of lasix [id number] [facility] Internal Medicine 179 [facility],[place] [address] 04/30/2023 09:57:09 04/30/2023 10:56:07 Type 2 diabetes mellitus 34202621 E11.9 agreed to go up in the dose Asthma 255044196 J45.21 stable todayno issues Essential hypertension 16315612 I10 stable today [id number] Rojas Rogel [facility] Internal Medicine [address] [facility] [address] [address] 07/26/2023 09:53:20 07/26/2023 14:20:09 Asthma 154512834 J45.21 acute asthma exacerbati onstart on z-james and prednisone Type 2 aaron betes mellitus 07319954 E11.9 agreed to go up in the dose Body mass index 40+ - severely obese 501312891 Z68.41 stable Acute kidney injury 1466 9001 N17.8 resolved Acute bronchitis 3303948 2 J20.8 will treat for acute bronchitis as she is developing symptoms [id number] Rojas Rogel [facility] Internal Medicine [address] [facility] [address] 07/31/2023 08:00:34 07/31/2023 14:12:55 Type 2 diabetes mellitus 07588776 E11.9 agreed to go up in the dose Urinary incontinence 165 384236 N39.46 will f/u with urogyn, discussed with going ahead of Botox [id number] Rojas Rogel [facility] Internal Medicine [address] [facility], [place] [address] 11/13/2023 14:16:15 11/13/2023 14:53:17 Type 2 diabetes mellitus 63506332 E11.9 agreed to go up in the dose to the 2 mg Essential hypertension 19278057 I10 stable today [id number] Rojas Rogel [facility] Internal Medicine 179 [facility], [place] [address] 02/11/2024 11:12:52 02/12/2024 13:03:48 Depression screening 266689504 Z13.31 negative Type 2 aaron betes mellitus 93406723 E11.9 stable on the current dose Asthma 836736992 J45.21 stable At [facility] risk for falls 473788365 Z91.81 has been stablemod risk given hx of falls Osteopenia 698827544 M85 .80 will set up with new order [id number] Rojas Rogel [facility] Internal Medicine [address] [facility], [place] [address] 05/29/2024 11:04:26 05/29/2024 11:36:46 Asthma 549361001 J45.21 stable Essential hypertension 66607425 I10 stable today Type 2 aaron betes mellitus 33990759 E11.9 stable on the current dose Pleural effusion 5377363 8 J90 resolvedno recent pulm infections Screening mammography 24 501967 Z12.31 due for MM [id number] Rojas Rogel, [facility] Internal Medicine [address] [facility] [address],[place] [address] 09/15/2024 11:40:17 09/15/2024 13:44:38 Type 2 diabetes mellitus 10287931 E11.9 stable on the current dose Fall R29.6 stable, no recent falls Obesity 974842766 E66.3 will restart the phentermin e 15 mgwill start the topimax in three weeks for plateau Body mass index 40+ - severely obese 409754286 Z68.41 weight has been stable at 248 lbs, no major changeswil l increase activity Screening mammography of bilateral breasts 7756400854 24032 Z12.31 Health Concerns Section Related Observation LastModified by Organization Detai ls LastModified Time None Recorded Concern Status LastModified by Organization Details LastModified Time None Recorded Advance Directives Directive None Recorded Payers Encounter Date Sequence Insurance Name Policy Number Policy [place] Covered Member ID [place] Member ID Guarantor Name 07/31/2023 2 [employer] - [employer] [id number] Larry Nievess [id number] Jillayne T [place] 07/31/2023 1 [place] [employer] Jillayne T [place] [id number] Jillayne T [place] 11/13/2023 2 [employer] - [employer] [id number] Larry Nievess [id number] Jillayne T [place] 11/13/2023 1 [place] [employer] Jillayne T [place] [id number] Jillayne T [place] 02/11/2024 2 [employer] - [employer] [id number] Larry Nievess [id number] Jillayne T Diane 02/11/2024 1 [place] Jillayne T Diane [id number] Jillayne T Diane 05/29/2024 2 [facility] [id number] Larry Contreras [id number] Bryn Laboy Diane 05/29/2024 1 [place] [facility] Costalljarek Laboy Diane [id number] 7 Jillayne Narda [place] 09/15/2024 2 [facility] [id number] Larry Contreras [id number] Batshevaayne T [place] 09/15/2024 1 [place] [facility] Jillayne T Diane [id number] Jillayne T Diane Notes Date Note Type Note Provider Name a nd Address Organization Details Recorded Time 4 text/html 3 mos f/u The patient is participating in this appointment via telemedicine communication with a phone call/video calling service ([email or web address])The patient consents to use of these platforms [...] her bladder after discussion [facility] [address] [place], [address], [facility] 07/31/2023 11:10:41 4 text/html f/u medication ICS: got the botox injections, doing well so far since she had it donesees Dr. Kirkholding off on the bladder sling will increase the ozempic 2 mg to see more of a weight loss effectdoing well otherwise; no side effects [facility] [address] [place], [address], [facility] Internal [facility] 11/13/2023 14:39:30 4 text/html 3 mo f/u the patient is doing really welljust got back from a family vacation from [place], [place] the patient reports that she had [...] for mental health. otherwise [facility] [address] [place], [address], [facility] Internal Medicine 02/11/2024 11:42:18 4 text/html [...] ankle swelling, orthopnea, palpitations [facility] [address] [place], [address], [facility] Internal Medicine 05/29/2024 11:32:49 5 text/html 3 [...] screening MM, order submitted [facility] [address] [place], [address], [facility] Internal Medicine 09/15/2024 12:05:51 OBGyn Episode No OBEpisode recorded.
[2024-12-01 13:07] LABS: MANUAL DIFF FLAG NO
[2024-12-01 13:14] LABS: Basophils Absolute Auto 0.1 X10*3/uL (0.0-0.2); Basophils Percent Auto 1.2 % (0-2); Eosinophils Absolute Auto 0.2 X10*3/uL (0.0-0.4); Eosinophils Percent Auto 3.9 % (0-4); Hematocrit 34.9 % (37.0-47.0); Hemoglobin 11.8 g/dl (12.0-16.0); Imm Gran Abs Auto 0.01 X10*3/uL (0.00-0.03); Imm Gran Pct Auto 0.2 % (0.0-0.4); Lymphocytes Absolute Auto 2.3 X10*3/uL (1.2-4.9); Lymphocytes Percent Auto 43.7 % (20-40); Mean Corpuscular HGB Conc 33.8 g/dl (31.0-35.0); Mean Corpuscular Hemoglobin 32.8 pg (27.0-33.0); Mean Corpuscular Volume 96.9 fL (80.0-98.0); Monocytes Absolute Auto 0.5 X10*3/uL (0.1-1.2); Monocytes Percent Auto 10.3 % (2-11); Neutrophils Absolute Auto 2.1 x10*3/uL (2.0-8.3); Neutrophils Percent Auto 40.7 % (45-73); Platelet Count 203 X10*3/uL (160-400); Red Cell Distribution Width 12.9 % (11.0-16.0); White Blood Count 5.2 X10*3/uL (4.8-10.8)
[2024-12-01 13:36] LABS: Alanine Aminotransferase 23 U/L (0-31); Albumin Level 4.1 g/dL (3.5-5.0); Alkaline Phosphatase 63 U/L (39-117); Anion Gap 13 (12-20); Aspartate Amino Transferase 28 U/L (5-31); Bilirubin Total 0.6 mg/dL (0.0-1.0); Blood Urea Nitrogen 17 mg/dL (9-16); Carbon Dioxide 26 mmol/L (22-29); Chloride 109 mmol/L (96-108); Cholesterol 196 mg/dL (<200); Estimated Glomerular Filt Rate > 60; Glucose Random 114 mg/dL (60-115); HDL Cholesterol 60 mg/dL (>40); LDL Cholesterol Calculated 117 mg/dL (<100); Potassium 4.1 mmol/L (3.3-5.1); Sodium 144 mmol/L (135-145); Total Protein 6.8 g/dL (6.5-8.0); Triglycerides 95 mg/dL (<150)
[2024-12-01 15:14] LABS: Estimated Average Glucose 103 mg/dL; Hemoglobin A1C 103.7249 umol/L; Hemoglobin A1c % 5.2 % (<6.0); Total Hemoglobin (HGBA1C) 3098.4292 umol/L
== END 2024-12-01 09:15 | disposition home or self-care (01) ==
LOC: HO.MANLDS 09:14
PROVIDERS: Visit Provider Physician Assistant
DX: E11.9 Type 2 diabetes mellitus without complications (principal)
CPT/HCPCS: 36415; 80053; 80061; 83036; 85025

== ENCOUNTER 2025-03-08 10:09 | Outpatient (REF) | payer MEDICARE, OTHER, SELFPAY ==
--- OUTSIDE RECORDS SUMMARY | 2025-03-08 11:20 | XMS_ITS | Encounter Summary ---
Author Organization [facility] Address [address] [facility] [address] [place] [address] Phone Care Team Providers Care Openstack Developer Name Role Phone Rojas Rogel DO Primary Care Provider [phone] Rojas Rogel DO Unavailable Sivan Wilson CERTIFIED DETENTION DEPUTY Unavailable [phone] Jackie Casey MD Unavailable [phone] Betzy DanielsonN Unavailable [phone] Daniele Delgado MD Unavailable [phone] Priyanka Daigle CERTIFIED DETENTION DEPUTY Unavailable Encounter Details Date Type Department Care Team (Late st Contact Info) Description 02/13/2021 Procedure [facility], Ct Scan - [facility] [address] [place] [address] Social History Tobacco Use Types Packs/Day Years Used Date Smoking Tobacco: Never Smokeless Tobacco: Never Alcohol Use Standard Drinks/Week Comments Yes 3 (1 standard drink = 0.6 oz pur e alcohol) Comments No Sex and Gender Information Value Date Recorded Sex Assigned at Female 06/15/2020 4:13 PM EST Legal Sex Female 9:55 PM EDT Gender Identity Female 06/15/2020 4:13 PM EST Sexual Orientation Not on file documented as of this encounter Functional Status * Calculated C-SSRS Risk Score (Lifetime/Recent) Answer Date of Assessment Author No Risk Indicated 02/13/2021 11:55 AM Luis Stokes CNP * [place] Suicide Severity Rating Scale (Screener/Recent Self-Report) Question Answer Date of Assessment Author 1. Wish to be (Past 1 Month) No 02/13/2021 11:55 AM Luis Stokes CNP 2. Non-Specific Active Suicidal Thoughts (Past 1 Month) No 02/13/2021 11:55 AM EDLuis Stanford CNP 6. Suicidal Behavior (Lifetime) No 02/13/2021 11:55 AM Luis Stokes CNP documented as of this encounter Plan of Treatment Not on file documented as of this encounter Visit Diagnoses Not on filedocumented in this encounter Care Teams Openstack Developer Relationship Specialty Start Date End Date Rojas Rogel DO PCP - General 05/09/17 Rojas Rogel DO Historical LMR Provider 05/11/17 Sivan Wilson NP [address] [place] [address] [email or web address] Historical LMR Provider 05/11/17 2 Jackie Casey MD [address] [place] [address] [facility], [place], [place] [id number] Historical LMR Provider 05/11/17 Betzy Danielson LDN [address] [place] [address] Historical LMR Provider 05/11/17 07/29/21 Daniele Delgado MD [address] [place] [address] Historical LMR Provider 05/11/17 2 Priyanka Daigle NP [address] [place] [address] Historical LMR Provider 05/11/17 2 documented as of this encounter Additional Source Comments The information contained in this document represents components of the legal health record. It is not the complete legal health record.[facility]
[2025-03-08 13:05] LABS: MANUAL DIFF FLAG NO
[2025-03-08 13:09] LABS: Hematocrit 38.4 % (37.0-47.0); Hemoglobin 13.2 g/dl (12.0-16.0); Imm Gran Abs Auto 0.01 X10*3/uL (0.00-0.03); Imm Gran Pct Auto 0.1 % (0.0-0.4); Lymphocytes Absolute Auto 3.2 X10*3/uL (1.2-4.9); Mean Corpuscular HGB Conc 34.4 g/dl (31.0-35.0); Mean Corpuscular Hemoglobin 32.0 pg (27.0-33.0); Mean Corpuscular Volume 93.2 fL (80.0-98.0); NRBC Abs Auto 0.000 X10*3/uL (0.0-0.012); NRBC Pct Auto 0.0 /100WBC (0.0-0.2); Platelet Count 261 X10*3/uL (160-400); Red Blood Count 4.12 X10*6/uL (4.20-5.50); White Blood Count 6.7 X10*3/uL (4.8-10.8)
[2025-03-08 13:27] LABS: Alanine Aminotransferase 33 U/L (0-31); Albumin Level 4.3 g/dL (3.5-5.0); Alkaline Phosphatase 75 U/L (39-117); Anion Gap 12 (12-20); Aspartate Amino Transferase 33 U/L (5-31); Blood Urea Nitrogen 16 mg/dL (9-16); Calcium 9.2 mg/dL (8.4-10.2); Carbon Dioxide 23 mmol/L (22-29); Chloride 113 mmol/L (96-108); Cholesterol 228 mg/dL (<200); Estimated Glomerular Filt Rate > 60; HDL Cholesterol 48 mg/dL (>40); Potassium 4.2 mmol/L (3.3-5.1); Sodium 144 mmol/L (135-145); Total Protein 7.0 g/dL (6.5-8.0); Triglycerides 137 mg/dL (<150)
[2025-03-08 13:41] LABS: Hemoglobin A1C 141.4243 umol/L; Total Hemoglobin (HGBA1C) 3547.9841 umol/L
== END 2025-03-08 10:10 | disposition home or self-care (01) ==
LOC: HO.MANLDS 10:09
PROVIDERS: Visit Provider Physician Assistant
DX: E11.9 Type 2 diabetes mellitus without complications (principal)
CPT/HCPCS: 36415; 80053; 80061; 83036; 85025

== ENCOUNTER 2025-06-07 10:40 | Outpatient (REF) | payer MEDICARE, OTHER, SELFPAY ==
[2025-06-07 13:09] LABS: MANUAL DIFF FLAG NO
[2025-06-07 13:41] LABS: Hematocrit 37.9 % (37.0-47.0); Hemoglobin 12.7 g/dl (12.0-16.0); Imm Gran Abs Auto 0.01 X10*3/uL (0.00-0.03); Imm Gran Pct Auto 0.2 % (0.0-0.4); Lymphocytes Absolute Auto 2.7 X10*3/uL (1.2-4.9); Mean Corpuscular HGB Conc 33.5 g/dl (31.0-35.0); Mean Corpuscular Hemoglobin 32.6 pg (27.0-33.0); Mean Corpuscular Volume 97.2 fL (80.0-98.0); NRBC Abs Auto 0.000 X10*3/uL (0.0-0.012); NRBC Pct Auto 0.0 /100WBC (0.0-0.2); Platelet Count 202 X10*3/uL (160-400); Red Blood Count 3.90 X10*6/uL (4.20-5.50); White Blood Count 6.4 X10*3/uL (4.8-10.8)
[2025-06-07 14:22] LABS: Alanine Aminotransferase 20 U/L (0-31); Albumin Level 4.1 g/dL (3.5-5.0); Alkaline Phosphatase 71 U/L (39-117); Anion Gap 13 (12-20); Aspartate Amino Transferase 23 U/L (5-31); Blood Urea Nitrogen 16 mg/dL (9-16); Calcium 8.9 mg/dL (8.4-10.2); Carbon Dioxide 23 mmol/L (22-29); Chloride 110 mmol/L (96-108); Cholesterol 192 mg/dL (<200); Estimated Glomerular Filt Rate > 60; HDL Cholesterol 52 mg/dL (>40); Potassium 4.1 mmol/L (3.3-5.1); Sodium 142 mmol/L (135-145); Total Protein 6.9 g/dL (6.5-8.0); Triglycerides 141 mg/dL (<150)
== END 2025-06-07 10:41 | disposition home or self-care (01) ==
LOC: HO.MANLDS 10:40
PROVIDERS: Visit Provider Physician Assistant
DX: Z13.1 Encounter for screening for diabetes mellitus (principal); E78.00 Pure hypercholesterolemia, unspecified
CPT/HCPCS: 36415; 80053; 80061; 83036; 85025